=== PATIENT | female | born 1970 | race African-American/Black ===

== ENCOUNTER 2017-01-27 10:52 | Emergency (ER) ==
--- NOTE | 2017-01-27 11:56 | ED EKG INTERP ---
EKG Interpretation - EKG Time of EKG reading by physician:: 11:00 EKG Read and Signed by:: Sacha Macario EKG Interpretation (*Must complete 3 of following elements*): Abnormal Rate: 93 Rhythm: normal sinus rhythm [place]: normal QRS: normal ST Wave: non-specific ST changes Attestation - Scribe Verification/Attestation Scribe:: Arvind López Acting as Scribe for:: Sacha Macario Scribe documention review:: This chart was documented by a scribe and accurately reflects the service the provider performed and the decisions made by the provider. Physician Attestation - Physician Attestation I, the provider, attest to the following statement:: Sacha Macario Physician documentation Attestation:: This documentation recorded by the scribe accurately reflects the service I personally performed and the decisions made by me.
--- NOTE | 2017-01-27 12:15 | PROVIDER DOCUMENTATION ---
HPI-EENT General - General Chief Complaint: Cough Stated Complaint: COUGH Time Seen by Provider: 01/27/17 12:12 Source: patient Allergies/Adverse Reactions: Patient Allergies Allergy/AdvReac Type Severity Reaction Status Date / Time levofloxacin [From Levaquin] Allergy Intermediate RASH Verified 01/27/17 12:09 ceftriaxone sodium * Allergy Mild RASH Verified 01/27/17 12:09 [From Rocephin] Home Medications: Home Medication List Medication Instructions Recorded Confirmed Last Taken Type Potassium Chloride 10 meq PO QAM 07/04/14 01/27/17 01/27/17 History Mometasone/Formoterol [Dulera 200 2 puff INH BID 12/10/14 01/27/17 01/27/17 History Mcg/5 Mcg Inhaler] Furosemide [Lasix] 40 mg PO QAM 01/08/15 01/27/17 01/27/17 History Albuterol [Albuterol Neb] 2.5 mg INH Q4H PRN PRN #0 neb 06/03/15 01/27/17 Rx Aspirin 81 mg PO QAM #0 chewtab 06/03/15 01/27/17 01/27/17 Rx Insulin Glargine [Lantus] 20 unit SUBQ BID #1 insuln.pen 06/03/15 01/27/1701/27 Rx Metformin [Glucophage] 1,000 mg PO BID CC #60 tablet 06/03/15 01/27/17 01/27/17 Rx Omeprazole 40 mg PO DAILY #30 capsule. 08/15/15 01/27/17 01/27/17 Rx Hydrocodone/APAP 10 mg/325 mg 1 each PO Q6HR PRN 08/22/15 01/27/17 01/27/17 History [[place]-10] Albuterol 2.5MG/Ipratrop 0.5MG 3 ml INH Q4H PRN PRN #5 neb 07/09/16 01/27/17 Rx [Duoneb (A & A)] Lisinopril/Hydrochlorothiazide 1 each PO DAILY 08/27/16 01/27/17 01/27/17 History [Lisinopril-Hctz 20-25 mg Tab] Azithromycin [Zithromax Z-Colt] 250 mg PO DIRECTED #1 pkg 01/27/17 Unknown Rx Guaifenesin E.r. [Mucinex] 600 mg PO BID #20 tablet 01/27/17 Unknown Rx - History of Present Illness-EENT General Nature of Presenting Problem: 46 y/o F former smoker with history of COPD, asthma, DM, anemia, HTN presents with complaint of sinus congestion, ST, cough (productive) x 1 week. She reports sick contact with same symptoms. She reports CP only with cough and SOB with coughing fits. She states home breathing treatments are not helping. Denies fever/chills. Review of Systems - Adult - REVIEW OF SYSTEMS - ADULT Constitutional: reports: no symptoms reported. denies: chills, fever Eyes: reports: no symptoms reported. denies: discharge, redness Ears, Nose, Mouth & Throat: reports: throat pain. denies: ear pain Cardiovascular: reports: chest pain (with cough only). denies: edema Respiratory: reports: see HPI Gastrointestinal: reports: no symptoms reported. denies: abdominal pain, nausea , vomiting Genitourinary: reports: no symptoms reported Musculoskeletal: reports: no symptoms reported. denies: joint pain, muscle aches Integumentary: reports: no symptoms reported. denies: itching, rash Neurological: reports: no symptoms reported. denies: dizziness/vertigo, headache/migraines Psychiatric: reports: no symptoms reported Endocrine: reports: no symptoms reported Hematologic/Lymphatic: reports: no symptoms reported Allergic/Immunologic: reports: asthma All Other Systems: Reviewed and Negative Past History - Adult - PAST MEDICAL HISTORY-ADULT Review of Records: reports: Nursing Assessment Review, Medications Reviewed Cardiovascular: reports: CHF, HTN, hyperlipidemia Respiratory: reports: asthma, COPD, sleep apnea Gastrointestinal: reports: GERD Musculoskeletal: reports: arthritis, chronic pain Endocrine/Immune: reports: anemia, Diabetes Other Conditions: reports: other (morbid obesity) - PRIOR SURGERIES/PROCEDURES Surgical/Procedure History: reports: - IMMUNIZATION STATUS Childhood Immunizations: See Nurse Assessment Flu Vaccine: See Nurse Assessment - FAMILY HISTORY Family History: reviewed, not pertinent Physical Exam- EENT - Physical Exam EENT Initial Vital Signs Reviewed: Yes General Appearance: appears well, alert, no apparent distress, obese Eye Exam: bilateral eye: normal inspection, PERRL, EOMI Ear Exam: bilateral ear: auricle normal, canal normal, TM normal Nasal Exam: normal inspection Throat Exam: normal mouth inspection, pharynx normal Neck: non-tender, full range of motion, supple Respiratory: chest non-tender, lungs clear, normal breath sounds, no pleuratic chest pain, no respiratory distress, no accessory muscle use Cardiovascular: normal peripheral pulses, regular rate, rhythm, no edema Lymphatic: no adenopathy Extremity: normal gait, normal inspection, no pedal edema Integumentary: normal color, normal turgor, warm/dry Neurologic: grossly normal, no motor/sensory deficits Psych/Mental Status: normal mood/affect, normal thought content, normal thought process, oriented x 3 Progress - PLAN OF CARE/RESULTS Progress/Plan/Lab Results: Orders Category Date Time Status CHEST-2 VIEWS [RAD] Stat Exams 01/27/17 10:58 Taken Flu Swab [INFLUENZA SCREEN A/B] Stat Lab 01/27/17 10:56 Completed EKG [EKG] Stat Ther 01/27/17 10:57 Ordered Vital Signs Temp Pulse Resp BP Pulse Ox 01/27/17 10:54 97.8 F 88 20 111/57 100 levofloxacin [From Levaquin] Allergy (Intermediate, Verified 01/27/17 12:09) RASH ceftriaxone sodium * [From Rocephin] Allergy (Mild, Verified 01/27/17 12:09) RASH Potassium Chloride 10 meq PO QAM 07/04/14 Mometasone/Formoterol [Dulera 200 Mcg/5 Mcg Inhaler] 2 puff INH BID 12/10/14 Furosemide [Lasix] 40 mg PO QAM 01/08/15 Albuterol [Albuterol Neb] 2.5 mg INH Q4H PRN PRN #0 neb 06/03/15 Aspirin 81 mg PO QAM #0 chewtab 06/03/15 Insulin Glargine [Lantus] 20 unit SUBQ BID #1 insuln.pen 06/03/15 Metformin [Glucophage] 1,000 mg PO BID CC #60 tablet 06/03/15 Omeprazole 40 mg PO DAILY #30 capsule.dr 08/15/15 Hydrocodone/APAP 10 mg/325 mg [[place]-10] 1 each PO Q6HR PRN 08/22/15 Albuterol 2.5MG/Ipratrop 0.5MG [Duoneb (A & A)] 3 ml INH Q4H PRN PRN #5 neb Lisinopril/Hydrochlorothiazide [Lisinopril-Hctz 20-25 mg Tab] 1 each PO DAILY Azithromycin [Zithromax Z-Colt] 250 mg PO DIRECTED #1 pkg 01/27/17 Guaifenesin E.r. [Mucinex] 600 mg PO BID #20 tablet 01/27/17 Patient with bronchitis. Normal vitals. Lungs CTA. CXR neg. Flu neg. Will discharge home with azithromycin as patient is allergic to levaquin and cephalosporins. Advised follow up with PCP within 2-3 days for recheck. - XRAY 1 XRAY Study: Chest XRAY Interpretation: negative Departure - Departure Time of Disposition Order: 12:17 DIAGNOSIS: Bronchitis Disposition: HOME 01 Certified Medical Emergency: Emergent Condition: Good Additional Instructions: ED Follow Up Instructions: You have been treated by a care provider in the Emergency Department. These instructions are being provided to you so you can have an understanding of how to care for yourself upon discharge. Upon discharge from the Emergency Department, you are responsible for making arrangements for follow-up care by a physician of your choice. Take all prescribed medications as directed. Return to the Emergency Department immediately for any new or worsening symptoms. You may call the Physician Referral phone number at [phone] to obtain a list of Physicians who are taking new patients. Prescriptions: Guaifenesin E.r. [Mucinex] 600 mg PO BID #20 tablet Azithromycin [Zithromax Z-Colt] 250 mg PO DIRECTED #1 pkg Referrals: Abdulaziz Bran MD [Primary Care Provider] - Forms: Return to School/Parent Work Instructions: Acute Bronchitis, [id number], Acute Bronchitis Attestation - Physician/ JACLYN Attestation Patient care was provided by Advanced Practice Provider:: Yes Advanced Practice Provider:: Annamarie Rubin Advanced Practice Provider documentation review:: The Mid-level provider documentation, treatment plan and medical decision making was reviewed by the physician who agrees with all treatment and medical decision making by the [facility].
[2017-01-27 12:39] VITALS: BP 128/50
--- NOTE | 2017-01-27 17:45 | Diag Imaging Result Document ---
PROCEDURE NAME: CHEST-2 VIEWS - 01/27/2017 FRONTAL AND LATERAL CHEST, TWO VIEWS: COMPARISON: 11/25/2016. FINDINGS: The heart is borderline mildly prominent. The vessels are not distended. No consolidation. No pleural effusions. IMPRESSION: No definite pneumonia. If symptoms persist then follow up imaging is recommended.
--- NOTE | 2017-01-28 05:22 | EKG Report ---
Test Performed on : 01/27/2017 10:59:04 AM Test Reason : CP Blood Pressure : / mmHG Vent. Rate : 093 BPM Atrial Rate : 093 BPM P-R Int : 132 ms QRS Dur : 078 ms QT Int : 374 ms P-R-T Axes : 036 025 040 degrees QTc Int : 465 ms Normal sinus rhythm. Nonspecific T wave abnormality Abnormal ECG When compared with ECG of 25-NOV-2016 10:57, No significant change was found Unconfirmed Result
== END 2017-01-27 12:39 | disposition home or self-care (01) ==
LOC: ED 10:52
DX: J40 Bronchitis, not specified as acute or chronic (principal); R05 Cough; R07.9 Chest pain, unspecified; R07.0 Pain in throat; R06.02 Shortness of breath; I50.9 Heart failure, unspecified; I10 Essential (primary) hypertension; E78.5 Hyperlipidemia, unspecified; J44.9 Chronic obstructive pulmonary disease, unspecified; E11.9 Type 2 diabetes mellitus without complications; M19.90 Unspecified osteoarthritis, unspecified site; G89.29 Other chronic pain; E66.9 Obesity, unspecified; R94.31 Abnormal electrocardiogram [ECG] [EKG]; Z79.899 Other long term (current) drug therapy; Z79.4 Long term (current) use of insulin; Z79.82 Long term (current) use of aspirin; Z79.51 Long term (current) use of inhaled steroids
CPT/HCPCS: 71020; 87804; 93005

== ENCOUNTER 2017-04-15 14:49 | Inpatient (IN) ==
[2017-04-15] MEDS ORDERED: ASPIRIN PO STA (15:17)
[2017-04-15 15:27] LABS: MANUAL DIFF NEEDED? NO
[2017-04-15 15:31] LABS: BASO% 0.1 % (0.0-0.8); EOS# 0.12 X1000 (0.0-0.7); EOS% 0.8 % (0.0-10.0); HEMATOCRIT 32.7 % (37.0-47.0); HEMOGLOBIN 9.5 g/dL (12.0-16.0); IMM GRAN# 0.06 X1000 (0.0-0.04); IMM GRAN% 0.4 % (0.0-0.5); LYMPH# 2.43 X1000 (1.2-3.4); LYMPH% 16.1 % (20.5-51.1); MCH 23.8 PG (27-31); MCHC 29.1 g/dL (33-37); MONO# 0.65 X1000 (0.11-0.59); MONO% 4.3 % (1.7-9.3); NEUT% 78.3 % (42.2-75.2); PLT 382 X1000 (130-400); RBC 3.99 XMIL (4.2-5.4)
[2017-04-15 15:43] LABS: INR 0.96; PTT 24.3 Seconds (22.0-36.0)
[2017-04-15] MEDS ORDERED: DUONEB (A & A) INH ONE (15:48)
[2017-04-15 15:52] LABS: AGAP 13; ALBUMIN 3.8 g/dL (3.5-5.0); ALKALINE PHOSPHATASE 68 U/L (32-104); BUN 13 mg/dL (8-22); CALCIUM 9.1 mg/dL (8.8-10.2); CHLORIDE 95 mmol/L (98-107); CK PROFILE 54 U/L (24-173); COSMO 282; GOT 7 U/L (10-30); GPT 7 U/L (10-36); MAGNESIUM 1.5 mg/dL (1.5-2.7); SODIUM 138 mmol/L (136-145); TCO2 30 mmol/L (25-35); TOTAL BILIRUBIN 0.13 mg/dL (0.20-1.00); TOTAL PROTEIN 6.4 g/dL (6.3-8.3)
--- NOTE | 2017-04-15 15:59 | Diag Imaging Result Doc PS360 ---
EXAM: CHEST-2 VIEWS HISTORY: CP TECHNIQUE: AP and lateral COMMENT: The study is suboptimal due to the patient's body habitus and attenuation of the lower lung tamayo. There is no definite evidence of acute disease or significant change since 01/31/2017. IMPRESSION: Suboptimal study. No evidence of acute disease. Electronically signed by Vishnu Castanon 04/15/2017 3:56 PM
[2017-04-15] MEDS ORDERED: SOLU-MEDROL IV ONE (16:32)
--- NOTE | 2017-04-15 16:32 | PROVIDER DOCUMENTATION ---
This chart was entered by Zo Ann Scribe, acting as scribe for Mikki Archuleta Jr, MD. HPI-Respiratory General - General Chief Complaint: Cough Stated Complaint: COUGH/SOB Time Seen by Provider: 04/15/17 15:28 Source: patient Allergies/Adverse Reactions: Patient Allergies Allergy/AdvReac Type Severity Reaction Status Date / Time levofloxacin [From Levaquin] Allergy Intermediate RASH Verified 04/15/17 16:06 ceftriaxone sodium * Allergy Mild RASH Verified 04/15/17 16:06 [From Rocephin] Home Medications: Home Medication List Medication Instructions Recorded Confirmed Last Taken Type Potassium Chloride 10 meq PO QAM 07/04/14 04/15/17 01/31/17 History Mometasone/Formoterol [Dulera 200 2 puff INH BID 12/10/14 04/15/17 01/31/17 History Mcg/5 Mcg Inhaler] Furosemide [Lasix] 40 mg PO QAM 01/08/15 04/15/17 01/31/17 History Albuterol [Albuterol Neb] 2.5 mg INH Q4H PRN PRN #0 neb 06/03/15 04/15/17 Rx Aspirin 81 mg PO QAM #0 chewtab 06/03/15 04/15/17 01/31/17 Rx Metformin [Glucophage] 1,000 mg PO BID CC #60 tablet 06/03/15 04/15/17 01/31/17 Rx Omeprazole 40 mg PO DAILY #30 capsule. 08/15/15 04/15/17 01/31/17 Rx Hydrocodone/APAP 10 mg/325 mg 1 each PO Q6HR PRN 08/22/15 04/15/17 01/30/17 History [[place]-10] Albuterol 2.5MG/Ipratrop 0.5MG 3 ml INH Q4H PRN PRN #5 neb 07/09/16 04/15/17 Rx [Duoneb (A & A)] Guaifenesin E.r. [Mucinex] 600 mg PO BID #20 tablet 01/27/17 04/15/17 01/31/17 Rx Folic Acid 1 mg PO DAILY #60 tablet 02/04/17 04/15/17 Unknown Rx Insulin Glargine [Lantus] 25 unit SUBQ BID #1 insuln.pen 02/04/17 04/15/1701/31 Rx Iron Carbonyl/Ascorbic Acid 1 each PO BID #90 tablet 02/04/17 04/15/17 Unknown Rx [Icar-C] Lisinopril/Hydrochlorothiazide 1 each PO BID #60 02/04/17 04/15/17 01/31/17 Rx [Lisinopril-Hctz 20-25 mg Tab] Tiotropium [place] Inhaler 1 puff INH DAILY #1 inhaler 02/04/17 04/15/17 Unknown Rx [Spiriva] Alprazolam [Xanax] 1 mg PO DAILY 04/15/17 04/15/17 Unknown History - History of Present Illness-Resp Nature of Presenting Problem: PT IS A 46YOF PRESENTING TO THE E C/O SOB. PT STATES FOR THE PAST 2-3 DAYS HER SOB HAS INCREASED. PT HAS A HX OF COPD AND ASTHMA. PT STATES SHE USE TO HAVE HOME O2 BUT NO LONGER DOES, SHE STATES HER NEBULIZER TREATMENTS ARE NOT HELPING. PT IS EXTREMELY MORBIDLY OBESE AND HAS BEEN HAVING A DRY COUGH WELL. PTS TEETH ARE BAD WITH DECAY IN BACK RIGHT LOWER MOLAR, SHE STATES HAVING CHILLS AND ACHY SINCE ONSET OF INCREASED SOB. NO OTHER COMPLAINTS AT THIS TIME Quality of Pain: reports: aching Severity in ED: reports: moderate Onset/Duration: reports: 3 days ago Timing: reports: still present Context: reports: other (MORBID OBESITY) Exposure: reports: unknown cause Cough Quality/Degree: reports: moderate, dry cough Episode Frequency: chronic episodes Current Respiratory Medication Therapy: Initiated see nurses note, Initiated A/ A nebulizer Modifying Factors: improves with: exertion, coughing, lying down, sitting upright Associated Symptoms: reports: cough, hurts to breathe, muscle/bodyaches, shortness of breath, wheezing. denies: dizziness, headache Similar Symptoms Previously?: Yes Recently seen or treated by another doctor?: No Review of Systems - Adult - REVIEW OF SYSTEMS - ADULT Constitutional: reports: see HPI, chills, fatique, night sweats. denies: fever Eyes: reports: no symptoms reported Ears, Nose, Mouth & Throat: reports: no symptoms reported Cardiovascular: reports: no symptoms reported Respiratory: reports: see HPI, chronic cough, cough, dyspnea on exertion, shortness of breath. denies: excessive sputum production Gastrointestinal: reports: no symptoms reported Genitourinary: reports: no symptoms reported Musculoskeletal: reports: no symptoms reported Integumentary: reports: no symptoms reported Neurological: reports: no symptoms reported Psychiatric: reports: no symptoms reported Endocrine: reports: no symptoms reported Hematologic/Lymphatic: reports: no symptoms reported Allergic/Immunologic: reports: no symptoms reported All Other Systems: Reviewed and Negative Past History - Adult - PAST MEDICAL HISTORY-ADULT Review of Records: reports: Old Records Reviewed, Nursing Assessment Review, Medications Reviewed, Social history reviewed & non-contributory. Major Childhood Illnesses: reports: denies history Cardiovascular: reports: CHF, HTN, hyperlipidemia Respiratory: reports: asthma, COPD, sleep apnea Gastrointestinal: reports: GERD Obstetrical/Gynecological: reports: denies history Genitourinary: reports: denies history Musculoskeletal: reports: arthritis, chronic pain Neurological: reports: denies history Endocrine/Immune: reports: anemia, Diabetes Other Conditions: reports: other (morbid obesity) - PRIOR SURGERIES/PROCEDURES Surgical/Procedure History: reports: - IMMUNIZATION STATUS Childhood Immunizations: See Nurse Assessment Flu Vaccine: See Nurse Assessment - FAMILY HISTORY Family History: reviewed, not pertinent - SOCIAL HISTORY Smoking: quit less than 1 year Substance Use: denies Alcohol Use Frequency: never Living Situation: family Physical Exam-General - PHYSICAL EXAM-ADULT Initial Vital Signs Reviewed: Yes - CONSTITUTIONAL General Appearance: alert, moderate distress, obese (MORBIDLY), anxious. negative: no apparent distress - EYES Eyes: PERRL/EOMI, pink conjunctivae - HEAD, EARS, NOSE, MOUTH & THROAT HENMT: normocephalic/atraumatic, moist mucous membranes, normal ENT inspection, TMs normal, pharynx normal, dental decay (BACK BOTTOM RIGHT SIDE MOLAR) - NECK Neck: non-tender, full range of motion, supple, normal inspection - RESPIRATORY Respiratory: chest non-tender, no pleuratic chest pain, no respiratory distress , no accessory muscle use, decreased breath sounds. negative: lungs clear, normal breath sounds - CARDIOVASCULAR Cardiovascular: normal peripheral pulses, regular rate, rhythm, no edema, no gallop, no JVD, no murmur - GASTROINTESTINAL (ABDOMEN) Abdominal Exam: normal bowel sounds, non tender, soft, no organomegaly, no pulsatile mass - LYMPHATIC Lymphatic: no adenopathy - MUSCULOSKELETAL Back Exam: normal inspection, no CVA tenderness, no vertebral tenderness Extremity: non-tender, no pedal edema, no calf tenderness, normal capillary refill, pelvis stable, other (UNABLE TO AMBULATE DUE TO WEIGHT AND SIZE). 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 nml as tested, grossly normal, no motor/sensory deficits - PSYCHIATRIC Psych/Mental Status: normal mood/affect, normal thought content, normal thought process, oriented x 3 Progress - PLAN OF CARE/RESULTS Progress/Plan/Lab Results: Vital Signs - 8 hr 04/15/17 14:52 04/15/17 16:10 04/15/17 16:23 Temperature 97.7 F Pulse Rate 85 81 73 Respiratory Rate 20 19 20 Blood Pressure 133/71 130/85 O2 Sat by Pulse Oximetry 99 96 97 Laboratory Results - last 24 hr 04/15/17 04/15/17 04/15/17 15:14 15:14 15:14 WBC 15.08 H RBC 3.99 L Hgb 9.5 L Hct 32.7 L MCV 82.0 MCH 23.8 L MCHC 29.1 L RDW Std Deviation 17.0 H Plt Count 382 MPV 10.0 Immature Gran % (Auto) 0.4 Neut % (Auto) 78.3 H Lymph % (Auto) 16.1 L [place] % (Auto) 4.3 Eos % (Auto) 0.8 Baso % (Auto) 0.1 Immature Gran # (Auto) 0.06 H Neut # (Auto) 11.80 H Lymph # (Auto) 2.43 [place] # (Auto) 0.65 H Eos # (Auto) 0.12 Baso # (Auto) 0.02 PT INR PTT (Actin FS) D-Dimer 0.46 Sodium 138 Potassium 4.0 Chloride 95 L Carbon Dioxide 30 Anion Gap 13 BUN 13 Creatinine 0.5 Estimated GFR/1.73 m2 > 60 BUN/Creatinine Ratio 26 Glucose 219 H Calculated Osmolality 282 Calcium 9.1 Magnesium 1.5 Total Bilirubin 0.13 L AST 7 L ALT 7 L Alkaline Phosphatase 68 Creatine Kinase 54 Troponin T Htf-N-Yirixosrdcw Pept Total Protein 6.4 Albumin 3.8 Globulin 2.6 Albumin/Globulin Ratio 1.5 06/05/2504/15/17 04/15/17 15:14 15:14 15:14 WBC RBC Hgb Hct MCV MCH MCHC RDW Std Deviation Plt Count MPV Immature Gran % (Auto) Neut % (Auto) Lymph % (Auto) [place] % (Auto) Eos % (Auto) Baso % (Auto) Immature Gran # (Auto) Neut # (Auto) Lymph # (Auto) [place] # (Auto) Eos # (Auto) Baso # (Auto) PT 10.0 INR 0.96 PTT (Actin FS) 24.3 D-Dimer Sodium Potassium Chloride Carbon Dioxide Anion Gap BUN Creatinine Estimated GFR/1.73 m2 BUN/Creatinine Ratio Glucose Calculated Osmolality Calcium Magnesium Total Bilirubin AST ALT Alkaline Phosphatase Creatine Kinase Troponin T < 0.010 Esh-K-Fnwchrmvlyx Pept 127 Total Protein Albumin Globulin Albumin/Globulin Ratio Orders Category Date Time Status Cardiac Monitoring DIRECTED Care 04/15/17 15:17 Active Saline Loc NOW Care 04/15/17 15:17 Active CHEST-2 VIEWS [RAD] Stat Exams 04/15/17 15:17 Completed CBC WITH ELECTRONIC DIFF [HEME] Stat Lab 04/15/17 15:14 Completed CK PROFILE [SP CHEM] Stat Lab 04/15/17 15:14 Completed COMPREHENSIVE METABOLIC PANEL [CHEM] Stat Lab 04/15/17 15:14 Completed D-DIMER [CHEM] Stat Lab 04/15/17 15:14 Completed MAGNESIUM [CHEM] Stat Lab 04/15/17 15:14 Completed PRO B-NATRIURETIC PEPTIDE Stat Lab 04/15/17 15:14 Completed PROTIME WITH INR [COAG] Stat Lab 04/15/17 15:14 Completed PTT [COAG] Stat Lab 04/15/17 15:14 Completed TROPONIN T Stat Lab 04/15/17 15:14 Completed Albuterol 2.5MG/Ipratrop 0.5MG [Duoneb (A & A)] Med 04/15/17 15:48 Discontinued 3 ml INH NOW ONE Aspirin Med 04/15/17 15:17 Discontinued 325 mg PO STAT STA Aerosol Treatments Routine Oth 04/15/17 15:48 Completed Aerosol Treatments Stat Oth 04/15/17 15:48 Completed Laboratory Tests 04/15/17 04/15/17 04/15/17 15:14 15:14 15:14 WBC 15.08 H RBC 3.99 L Hgb 9.5 L Hct 32.7 L MCV 82.0 MCH 23.8 L MCHC 29.1 L RDW Std Deviation 17.0 H Plt Count 382 MPV 10.0 Immature Gran % (Auto) 0.4 Neut % (Auto) 78.3 H Lymph % (Auto) 16.1 L [place] % (Auto) 4.3 Eos % (Auto) 0.8 Baso % (Auto) 0.1 Immature Gran # (Auto) 0.06 H Neut # (Auto) 11.80 H Lymph # (Auto) 2.43 [place] # (Auto) 0.65 H Eos # (Auto) 0.12 Baso # (Auto) 0.02 PT INR PTT (Actin FS) D-Dimer 0.46 Sodium 138 Potassium 4.0 Chloride 95 L Carbon Dioxide 30 Anion Gap 13 BUN 13 Creatinine 0.5 Estimated GFR/1.73 m2 > 60 BUN/Creatinine Ratio 26 Glucose 219 H Calculated Osmolality 282 Calcium 9.1 Magnesium 1.5 Total Bilirubin 0.13 L AST 7 L ALT 7 L Alkaline Phosphatase 68 Creatine Kinase 54 Troponin T Evr-Q-Hpksjrcgghm Pept Total Protein 6.4 Albumin 3.8 Globulin 2.6 Albumin/Globulin Ratio 1.5 04/15/17 04/15/17 04/15/17 15:14 15:14 15:14 WBC RBC Hgb Hct MCV MCH MCHC RDW Std Deviation Plt Count MPV Immature Gran % (Auto) Neut % (Auto) Lymph % (Auto) [place] % (Auto) Eos % (Auto) Baso % (Auto) Immature Gran # (Auto) Neut # (Auto) Lymph # (Auto) [place] # (Auto) Eos # (Auto) Baso # (Auto) PT 10.0 INR 0.96 PTT (Actin FS) 24.3 D-Dimer Sodium Potassium Chloride Carbon Dioxide Anion Gap BUN Creatinine Estimated GFR/1.73 m2 BUN/Creatinine Ratio Glucose Calculated Osmolality Calcium Magnesium Total Bilirubin AST ALT Alkaline Phosphatase Creatine Kinase Troponin T < 0.010 Vmw-K-Koqojaoawci Pept 127 Total Protein Albumin Globulin Albumin/Globulin Ratio Orders Category Date Time Status Cardiac Monitoring DIRECTED Care 04/15/17 15:17 Active Saline Loc NOW Care 04/15/17 15:17 Active CHEST-2 VIEWS [RAD] Stat Exams 04/15/17 15:17 Completed CBC WITH ELECTRONIC DIFF [HEME] Stat Lab 04/15/17 15:14 Completed CK PROFILE [SP CHEM] Stat Lab 04/15/17 15:14 Completed COMPREHENSIVE METABOLIC PANEL [CHEM] Stat Lab 04/15/17 15:14 Completed D-DIMER [CHEM] Stat Lab 04/15/17 15:14 Completed MAGNESIUM [CHEM] Stat Lab 04/15/17 15:14 Completed PRO B-NATRIURETIC PEPTIDE Stat Lab 04/15/17 15:14 Completed PROTIME WITH INR [COAG] Stat Lab 04/15/17 15:14 Completed PTT [COAG] Stat Lab 04/15/17 15:14 Completed TROPONIN T Stat Lab 04/15/17 15:14 Completed Albuterol 2.5MG/Ipratrop 0.5MG [Duoneb (A & A)] Med 04/15/17 15:48 Discontinued 3 ml INH NOW ONE Aspirin Med 04/15/17 15:17 Discontinued 325 mg PO STAT STA Aerosol Treatments Routine Oth 04/15/17 15:48 Active Aerosol Treatments Stat Oth 04/15/17 15:48 Active Vital Signs - 24 hr 04/15/17 14:52 04/15/17 16:10 Temperature 97.7 F Pulse Rate 85 81 Respiratory Rate 20 19 Blood Pressure 133/71 130/85 O2 Sat by Pulse Oximetry 99 96 Result Diagrams: 04/15/17 15:14 04/15/17 15:14 - XRAY 1 XRAY: Bilateral XRAY Study: Chest (NO CHANGE SINCE 01/31/17, SUBOPTIMAL STUDY NAD - [id number]) - CONSULTS/PCP/HOSPITALIST Notification #1 *Consult/PCP/Hospitalist*: Dr. 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) Departure - Departure Date of Disposition Decision: 04/15/17 Time of Disposition Decision: 16:30 DIAGNOSIS: COPD exacerbation, Morbid obesity with BMI of 70 and over, adult Disposition: ADMITTED INPATIENT 09 Certified Medical Emergency: Emergent Condition: Fair Referrals and Follow-Ups: Abdulaziz Bran MD [Primary Care Provider] - - Critical Care Note This patient required my direct & personal management of CC.: No This chart was documented by the indicated scribe, (Zo Ann Scribe) and accurately reflects the services I performed and decisions made by me, Mikki Archuleta Jr, MD, as attested by the provider's signature.
[2017-04-15] MEDS: ZITHROMAX 500 MG/NS 500 MG/250 ML IVPB IV SCH (18:04)
--- NOTE | 2017-04-15 19:20 | HISTORY AND PHYSICAL ---
PRIMARY CARE PROVIDER: Dr. Bran. FABRICATION ENGINEER: Dr. Merritt. RN INTERNATIONAL: Dr. Theodore. CHIEF COMPLAINT: Shortness of breath. HISTORY OF PRESENT ILLNESS: Ms. Gee is a 46-year-old, morbidly obese, female with a medical history of COPD, diabetes mellitus type 2, mild obstructive sleep apnea, who presents with shortness of breath and chills for 2 days. She states she has a nonproductive cough that is worse at night. Her shortness of breath is worse when she is talking and with activity and also her voice gets strained every time she gets sick. She has no other complaints. Workup revealed that she does have an elevated white blood cell count of 15,000 but this also appears to be chronic for her, although patient states she is unsure of why she would have a chronic elevated white count. Will admit her for COPD exacerbation. Chest x-ray did not show any signs of acute disease. PAST MEDICAL HISTORY: Morbid obesity with a BMI of 86.5, self reported congestive heart failure but ejection fraction on last echocardiogram was normal and she had normal diastolic function. She had did have some mild pulmonary hypertension. Diabetes mellitus type 2, chronic blood loss anemia secondary to menstruation, iron deficiency anemia, asthma with COPD, obstructive sleep apnea, GERD, arthritis of the knees, hypertension, hyperlipidemia, gout, anxiety. PAST SURGICAL HISTORY: section. SOCIAL HISTORY: Quit smoking in 2005; was a 2 pack per day smoker prior to that. She is still around people and has secondhand smoke. Denies alcohol or illicit drug use. FAMILY HISTORY: Positive for diabetes, hypertension, COPD. REVIEW OF SYSTEMS: Fourteen point review of systems were complete and all were negative except for those mentioned in the above HPI. ALLERGIES: Levaquin and Rocephin. HOME MEDICATIONS: Albuterol, Xanax, aspirin, folic acid, Lasix, Mucinex, [place] 10, Lantus, Icar C, lisinopril hydrochlorothiazide, metformin, Dulera, omeprazole, potassium chloride, Spiriva. PHYSICAL EXAMINATION: VITAL SIGNS: Temperature 98.1 degrees, heart rate 82, respiratory rate 21, blood pressure 128/80, O2 saturation 99% on room air. GENERAL: Ms. Sherlyn Gee is a 46-year-old, morbidly obese female who is quite tearful at this time but she is able to answer questions appropriately. HEENT: Atraumatic, normocephalic. Pupils equal, round, reactive to light. Extraocular movements intact. Mucous membranes. NECK: No carotid bruits. CARDIOVASCULAR: S1, S2. Regular rate and rhythm. No rubs, gallops, murmurs. PULMONARY: Mild expiratory wheezes noted in the upper lobes posteriorly. Mild shortness of breath. No accessory muscle use and she is on room air next. GI: Soft, obese. Tender in the epigastric and right and left upper quadrants. EXTREMITIES: No edema. There are +2 dorsalis and radial pulses. NEUROLOGIC: Alert and oriented x4. Moves all extremities equally. LABORATORY DATA: White blood cells 15,000, hemoglobin 9.5, hematocrit 32.7, platelet count 382,000. INR 0.96. PTT 24.3. D-dimer 0.46. Sodium 138, potassium 4.0, BUN 13, creatinine 0.5, glucose 219, magnesium 1.5, bilirubin 0.13, AST 7, ALT 7. Cardiac enzymes negative. Albumin 3.8. IMAGING: Chest x-ray showed no acute findings but was a suboptimal study. ASSESSMENT AND PLAN: 1. Chronic obstructive pulmonary disease exacerbation. Will do albuterol Atrovent nebs, budesonide, acetylcysteine. Turn, cough, deep breathe. Antibiotic coverage. 2. Obstructive sleep apnea. She will use her CPAP from home. 3. Chronic anemia but it is stable at this time at 9.5 and 32.7. The anemia is chronic blood loss anemia and iron deficiency anemia. We will continue her iron. 4. Diabetes mellitus type 2. Pattern blood glucoses and sliding scale insulin. 5. Gastroesophageal reflux disease. Continue proton pump inhibitor. 6. Arthritis. Continue home medications. 7. Hypertension. Continue home medications. 8. Anxiety. Continue Xanax. 9. Morbid obesity with a body mass index of 86.5. Exercise and diet discussed. 10. Elevated white blood cell count, leukocytosis. Appears to be chronic but patient states she has no reason why she would have a chronic elevated white blood cell count. She states she does not take steroids at home. Dictated by CORY Mccloud for Yonathan Hopkins MD cc: CORY Mccloud MD
[2017-04-15] MEDS ORDERED: NS 1,000 ML IV SCH (20:13)
[2017-04-15] MEDS ORDERED: TYLENOL PO PRN (20:13)
[2017-04-15] MEDS: MUCINEX PO SCH (21:06)
[2017-04-15] MEDS: PRINZIDE 10/12.5MG PO SCH (21:06)
[2017-04-15] MEDS: ICAR-C PO SCH (21:06)
[2017-04-15] MEDS: XANAX PO SCH (21:06)
[2017-04-15] MEDS: HUMULIN R SUBQ SCH (21:07)
[2017-04-15] MEDS: NORCO-10 PO PRN (21:11)
[2017-04-15] MEDS: SOLU-MEDROL IV SCH (21:39)
[2017-04-15] MEDS: LANTUS SUBQ SCH (21:44)
[2017-04-15] MEDS: DUONEB (A & A) INH SCH ×2 (21:49→23:17)
[2017-04-15] MEDS: MUCOMYST 20% INH SCH (21:49)
[2017-04-15] MEDS: PULMICORT INH SCH (21:49)
[2017-04-16] MEDS: DUONEB (A & A) INH SCH ×6 (03:09→23:01)
[2017-04-16] MEDS: SOLU-MEDROL IV SCH ×4 (03:59→22:06)
[2017-04-16] MEDS: NORCO-10 PO PRN ×3 (04:01→19:59)
[2017-04-16 05:08] LABS: URINE MICRO REVIEW NEEDED? NO; URINE SOURCE CLEAN CATCH
[2017-04-16 05:14] LABS: UR EPITHELIAL CELLS <10 /HPF (<10); URINE BACTERIA NEGATIVE /HPF; URINE RBC <10 /HPF (<10)
[2017-04-16 05:15] LABS: BILIRUBIN URINE NEGATIVE (NEGATIVE); BLOOD URINE NEGATIVE (NEGATIVE); COLOR YELLOW; GLUCOSE URINE >1000 mg/dL (NEGATIVE); LEUKOCYTES URINE TRACE (NEGATIVE); NITRITE URINE NEGATIVE (NEGATIVE); PH URINE 6.5; PROTEIN URINE NEGATIVE (NEGATIVE); SP GRAVITY URINE 1.025; TURBIDITY URINE CLEAR (CLEAR); URINE CULTURE NEEDED? YES; UROBILINOGEN URINE NORMAL (NORMAL)
--- NOTE | 2017-04-16 05:38 | EKG Report ---
Test Performed on : 04/15/2017 2:56:01 PM Test Reason : No Order in [id number] Blood Pressure : / mmHG Vent. Rate : 084 BPM Atrial Rate : 084 BPM P-R Int : 136 ms QRS Dur : 078 ms QT Int : 398 ms P-R-T Axes : 037 020 031 degrees QTc Int : 470 ms Normal sinus rhythm. Normal ECG When compared with ECG of 27-JAN-2017 10:59, No significant change was found Unconfirmed Result
[2017-04-16] MEDS: HUMULIN R SUBQ SCH ×4 (06:00→20:07)
[2017-04-16] MEDS: PRILOSEC PO SCH (06:00)
[2017-04-16 07:26] LABS: BASO% 0.1 % (0.0-0.8); EOS# 0.01 X1000 (0.0-0.7); EOS% 0.1 % (0.0-10.0); HEMATOCRIT 33.3 % (37.0-47.0); HEMOGLOBIN 9.5 g/dL (12.0-16.0); IMM GRAN# 0.17 X1000 (0.0-0.04); LYMPH# 0.82 X1000 (1.2-3.4); LYMPH% 5.1 % (20.5-51.1); MANUAL DIFF NEEDED? YES; MCH 23.1 PG (27-31); MCHC 28.5 g/dL (33-37); MONO# 0.08 X1000 (0.11-0.59); MONO% 0.5 % (1.7-9.3); NEUT% 93.2 % (42.2-75.2); PLT 397 X1000 (130-400); RBC 4.11 XMIL (4.2-5.4)
[2017-04-16 07:46] LABS: AGAP 17; ALBUMIN 3.9 g/dL (3.5-5.0); ALKALINE PHOSPHATASE 70 U/L (32-104); BUN 16 mg/dL (8-22); CHLORIDE 93 mmol/L (98-107); COSMO 285; GOT 7 U/L (10-30); GPT 7 U/L (10-36); POTASSIUM 4.4 mmol/L (3.5-5.1); SODIUM 134 mmol/L (136-145); TCO2 24 mmol/L (25-35); TOTAL BILIRUBIN 0.19 mg/dL (0.20-1.00); TOTAL PROTEIN 7.2 g/dL (6.3-8.3)
[2017-04-16 07:51] LABS: BANDS 4 % (0-1); HYPOCHROM 1+; LYMPHS 6 % (21-51); MONO 2 % (1-9)
[2017-04-16] MEDS: MUCOMYST 20% INH SCH ×2 (07:58→19:47)
[2017-04-16] MEDS: PULMICORT INH SCH ×2 (08:00→19:47)
[2017-04-16] MEDS: LANTUS SUBQ SCH ×2 (08:37→19:59)
[2017-04-16] MEDS: PRINZIDE 10/12.5MG PO SCH ×2 (08:39→20:02)
[2017-04-16] MEDS: LOVENOX SUBQ SCH (08:39)
[2017-04-16] MEDS: KLOR-CON PO SCH (08:45)
[2017-04-16] MEDS: FOLIC ACID PO SCH (08:45)
[2017-04-16] MEDS: ICAR-C PO SCH ×2 (08:45→19:59)
[2017-04-16] MEDS: MUCINEX PO SCH ×2 (08:45→19:59)
[2017-04-16] MEDS: ASPIRIN PO SCH (08:45)
[2017-04-16] MEDS: LASIX PO SCH (08:45)
--- NOTE | 2017-04-16 10:00 | Diag Imaging Result Doc PS360 ---
EXAM: US ABDOMEN-COMPLETE INDICATION: abd pain; epigastric region COMPARISON: 08/21/2016 FINDINGS: The gallbladder appears normal with no stones, wall thickening, or pericholecystic fluid. The common bile duct is normal in diameter. Sonographic Rhodes's sign was reported to be negative. The liver is diffusely echogenic suggesting hepatic steatosis. The liver is mildly prominent measuring up to 18.6 cm in length. Portal venous flow is hepatopedal. The pancreas is partially obscured. The visualized portion is unremarkable. The aorta and IVC are grossly unremarkable. The spleen is unremarkable. The kidneys are grossly unremarkable. IMPRESSION: Mildly prominent liver and suggestion of hepatic steatosis. Essentially unremarkable, otherwise. Electronically signed by Jemal Byrd 04/16/2017 9:57 AM
--- NOTE | 2017-04-16 13:38 | PROGRESS NOTE ---
DATE: 04/16/2017 SUBJECTIVE: This patient states that she is still having shortness of breath but compared with yesterday she is a little bit better. She denies nausea, vomiting. No fever. No chills. OBJECTIVE: Vital Signs: Temperature 97.6 degrees, pulse 79, respiratory rate 19, blood pressure 124/57, oxygen saturation 95% on 3 L of nasal cannula. HEENT: Head normocephalic. No trauma. PERRLA. Neck: Supple. No JVD. No masses. Central trachea. Chest: Decreased breath sounds globally. Prolonged expiratory phase. Scattered wheezing bilaterally. Abdomen: Soft, obese, nontender, nondistended. Extremities: No edema. No clubbing. No cyanosis. Neurological: The patient is alert and oriented x3. No focal deficits. LABORATORY: WBC 16.2, hemoglobin 9.5, hematocrit 33.3, platelets 397,000. Sodium 134, potassium 4.4, chloride 93, bicarbonate 24, BUN 16, creatinine 0.6, glucose 378, calcium 9.8. ASSESSMENT AND PLAN: 1. COPD exacerbation. Continue with the same management for now, breathing treatment, steroids, pulmonary toilet. 2. Obstructive sleep apnea. She will use her CPAP from home. 3. Chronic anemia, stable. We will continue to monitor. 4. Type 2 diabetes. I will continue with the pattern of blood sugar and sliding scale insulin. She is on Lantus at this moment 25 units subcu twice a day. I will increase the dose to 35 twice a day and I will check tomorrow. Probably the increase of blood sugar has been related with the steroids. 5. GERD. Continue with PPIs. 6. Arthritis. Continue with home medication. 7. Hypertension. Continue also with home medication. The blood pressure is stable. 8. Anxiety. Continue with Xanax. 9. Morbid obesity with a body mass index of 86.5, exercise and diet discussed. 10. Leukocytosis, appears to be chronic, we will continue to monitor. The patient states that at home she is not taking any kind of steroids. cc: Yonathan Hopkins MD
[2017-04-16] MEDS ORDERED: NS 500 ML IV ONE ×2 (14:05→16:10)
[2017-04-16] MEDS: ZITHROMAX 500 MG/NS 500 MG/250 ML IVPB IV SCH (17:32)
[2017-04-16] MEDS: XANAX PO SCH (19:59)
[2017-04-17] MEDS: DUONEB (A & A) INH SCH ×6 (03:55→23:00)
[2017-04-17] MEDS: SOLU-MEDROL IV SCH ×2 (04:04→10:05)
[2017-04-17] MEDS: PRILOSEC PO SCH (06:06)
[2017-04-17] MEDS: HUMULIN R SUBQ SCH ×4 (06:06→21:40)
[2017-04-17] MEDS: NORCO-10 PO PRN ×3 (06:06→21:40)
[2017-04-17 07:14] LABS: BASO% 0.1 % (0.0-0.8); HEMATOCRIT 32.5 % (37.0-47.0); HEMOGLOBIN 9.3 g/dL (12.0-16.0); IMM GRAN# 0.15 X1000 (0.0-0.04); IMM GRAN% 0.8 % (0.0-0.5); LYMPH# 1.05 X1000 (1.2-3.4); LYMPH% 5.6 % (20.5-51.1); MANUAL DIFF NEEDED? YES; MCH 23.3 PG (27-31); MCHC 28.6 g/dL (33-37); MCV 81.5 FL (81-99); MONO# 0.54 X1000 (0.11-0.59); MONO% 2.9 % (1.7-9.3); MPV 10.3 FL (7.4-10.4); NEUT% 90.6 % (42.2-75.2); PLT 414 X1000 (130-400); RBC 3.99 XMIL (4.2-5.4)
[2017-04-17] MEDS: ZOFRAN IV PRN ×2 (07:19→14:30)
[2017-04-17 07:26] LABS: AGAP 16; BUN 17 mg/dL (8-22); CALCIUM 9.1 mg/dL (8.8-10.2); CHLORIDE 95 mmol/L (98-107); COSMO 284; POTASSIUM 3.9 mmol/L (3.5-5.1); SODIUM 136 mmol/L (136-145); TCO2 25 mmol/L (25-35)
[2017-04-17 07:47] LABS: BANDS 8 % (0-1); LYMPHS 4 % (21-51); MONO 2 % (1-9)
[2017-04-17 07:48] LABS: HYPOCHROM 1+
[2017-04-17] MEDS ORDERED: INSULIN PEN NEEDLES ONE (07:48)
[2017-04-17] MEDS: PULMICORT INH SCH ×2 (08:54→19:46)
[2017-04-17] MEDS: MUCOMYST 20% INH SCH ×2 (08:54→19:48)
[2017-04-17] MEDS: LASIX PO SCH (10:06)
[2017-04-17] MEDS: FOLIC ACID PO SCH (10:06)
[2017-04-17] MEDS: KLOR-CON PO SCH (10:06)
[2017-04-17] MEDS: ICAR-C PO SCH ×2 (10:06→21:30)
[2017-04-17] MEDS: PRINZIDE 10/12.5MG PO SCH ×2 (10:06→21:30)
[2017-04-17] MEDS: ASPIRIN PO SCH (10:07)
[2017-04-17] MEDS: MUCINEX PO SCH ×2 (10:07→21:39)
[2017-04-17] MEDS: LANTUS SUBQ SCH ×2 (10:07→21:43)
[2017-04-17] MEDS: LOVENOX SUBQ SCH (10:07)
[2017-04-17] MEDS: MYCOSTATIN SUSP PO SCH ×3 (14:25→21:44)
--- NOTE | 2017-04-17 15:54 | PROGRESS NOTE ---
DATE: 04/17/2017 SUBJECTIVE: Today, Ms. Gee referred to be doing fine. She continues to have cough and abdominal discomfort due to excessive cough. OBJECTIVE: Vital signs: Blood pressure is 111/50, pulse of 67, respirations 18, temperature 98.1 degrees. General: Ms. Gee is a 46-year-old female. She is in bed. There is no distress. Mucosa is pink and moist. Anicteric. Acyanotic. Neck: Supple. Chest: Air entry is bilaterally reduced. There is a few bibasilar crepitations. Cardiovascular: Regular rate and rhythm. Abdomen: Soft, distended, mildly tender in the epigastrium. Extremities: No pedal edema. 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 There is no focal neurological deficit. LABORATORY DATA: WBC is 18.65, hemoglobin is 9.3, platelet count of 415,000. There is only 8% of bands on peripheral smear. Chemistry is reviewed completely unremarkable except for glucose of 293. ASSESSMENT: 1. Chronic obstructive pulmonary disease exacerbation. We will continue with bronchodilation, antibiotic and steroid. 2. Obstructive obstructive sleep apnea. Patient will continue using his CPAP during sleep time. 3. Diabetes type 2. We will continue with insulin regimen. Patient's glucose I think has been slightly high due to steroids. 4. Leukocytosis likely from steroid use. Noted. 5. Hypertension stable. PLAN: In general, I think Ms. Gee is improving. We are going to cut down her steroid dose. We are going to change her steroids to oral since the COPD seems to be improving. We will continue with the current IV antibiotics and bronchodilation therapy. I encouraged the patient to sit up some more and use her CPAP machine during sleep. Hopefully, we might be able to discharge the patient home soon. cc: Ruben Jiang MD
[2017-04-17] MEDS: ZITHROMAX 500 MG/NS 500 MG/250 ML IVPB IV SCH (17:34)
[2017-04-17] MEDS: XANAX PO SCH (21:40)
[2017-04-18] MEDS: HUMULIN R SUBQ SCH ×8 (00:18→22:55)
[2017-04-18] MEDS: DUONEB (A & A) INH SCH ×6 (03:56→23:25)
[2017-04-18] MEDS: NORCO-10 PO PRN ×3 (04:44→21:21)
[2017-04-18] MEDS: ZOFRAN IV PRN ×2 (04:44→10:44)
[2017-04-18] MEDS: PRILOSEC PO SCH (06:22)
[2017-04-18 06:30] LABS: HEMATOCRIT 32.1 % (37.0-47.0); HEMOGLOBIN 9.1 g/dL (12.0-16.0); IMM GRAN# 0.26 X1000 (0.0-0.04); IMM GRAN% 1.3 % (0.0-0.5); LYMPH# 2.28 X1000 (1.2-3.4); LYMPH% 11.2 % (20.5-51.1); MANUAL DIFF NEEDED? YES; MCH 23.5 PG (27-31); MCHC 28.3 g/dL (33-37); MCV 82.7 FL (81-99); MONO# 1.12 X1000 (0.11-0.59); MONO% 5.5 % (1.7-9.3); MPV 10.2 FL (7.4-10.4); PLT 404 X1000 (130-400); RBC 3.88 XMIL (4.2-5.4)
[2017-04-18 06:35] LABS: AGAP 13; BUN 25 mg/dL (8-22); CALCIUM 9.3 mg/dL (8.8-10.2); CHLORIDE 95 mmol/L (98-107); COSMO 287; POTASSIUM 4.1 mmol/L (3.5-5.1); SODIUM 138 mmol/L (136-145); TCO2 30 mmol/L (25-35)
[2017-04-18 07:00] LABS: BANDS 4 % (0-1); LYMPHS 12 % (21-51); MONO 6 % (1-9)
[2017-04-18 07:01] LABS: HYPOCHROM 1+
[2017-04-18] MEDS: PULMICORT INH SCH ×2 (07:54→19:35)
[2017-04-18] MEDS: MUCOMYST 20% INH SCH ×2 (07:54→19:35)
[2017-04-18] MEDS: LOVENOX SUBQ SCH (08:52)
[2017-04-18] MEDS: FOLIC ACID PO SCH (08:53)
[2017-04-18] MEDS: LANTUS SUBQ SCH ×2 (08:53→21:20)
[2017-04-18] MEDS: PRINZIDE 10/12.5MG PO SCH ×2 (08:53→21:20)
[2017-04-18] MEDS: LASIX PO SCH (08:54)
[2017-04-18] MEDS: ASPIRIN PO SCH (08:54)
[2017-04-18] MEDS: KLOR-CON PO SCH (08:54)
[2017-04-18] MEDS: ICAR-C PO SCH ×2 (08:54→21:20)
[2017-04-18] MEDS: MUCINEX PO SCH ×2 (08:54→21:20)
[2017-04-18] MEDS: MYCOSTATIN SUSP PO SCH ×4 (08:54→21:21)
[2017-04-18] MEDS ORDERED: PREDNISONE PO SCH (09:00)
[2017-04-18] MEDS ORDERED: SODIUM CHLORIDE 0.9% 10 ML ONE (10:43)
--- NOTE | 2017-04-18 15:33 | PROGRESS NOTE ---
DATE: 04/18/2017 SUBJECTIVE: Today Mrs. Gee states that she is doing better. She still continued to have cough and abdominal discomfort due to her excessive cough. She is still having mild shortness of breath and weakness. Probably tomorrow I will be able to discharge this patient. OBJECTIVE: Vital Signs: Temperature 97.4 degrees, pulse 69, respiratory rate 17, blood pressure 110/67, O2 saturation 99 on nasal cannula 3 L. HEENT: Head normocephalic. No trauma. PERRLA. Neck: Supple. No JVD. No masses. Central trachea. Obese. Chest: Decreased breath sounds globally mostly at the bases. Prolonged expiratory phase. Scattered wheezing bilaterally. Cardiovascular: RRR. No murmurs. Abdomen: Soft, protuberant. Mild tenderness to palpation at the level of the epigastric area. Extremities: No edema. No clubbing. No cyanosis. Neurological: The patient is alert and oriented x3. No focal neurological deficits. LABORATORY: WBC 20.3, hemoglobin 9.1, hematocrit 32.1, platelet 404,000. Sodium 138, potassium 4.1, chloride 95, bicarbonate 30, BUN 25, creatinine 0.7, glucose 228. ASSESSMENT AND PLAN: 1. Chronic obstructive pulmonary disease exacerbation. I will continue with bronchodilator, oxygen and steroids, pulmonary toilet and I will ask for physical therapy evaluation. 2. Obstructive sleep apnea. Patient will continue using her CPAP machine during sleep time. 3. Uncontrolled type 2 diabetes. I will increase the dose of Lantus from 35-45 units. Likely the glucose has been elevated secondary to steroids. 4. Leukocytosis. Again this is likely secondary to steroids. She does not have any source of infection. 5. Hypertension stable. Overall, this patient is doing much better, hopefully tomorrow we will be able to discharge her home. cc: Yonathan Hopkins MD
[2017-04-18] MEDS: ZITHROMAX 500 MG/NS 500 MG/250 ML IVPB IV SCH (17:18)
[2017-04-18] MEDS: XANAX PO SCH (21:20)
[2017-04-19] MEDS: DUONEB (A & A) INH SCH ×2 (03:35→09:24)
[2017-04-19] MEDS: PRILOSEC PO SCH ×2 (05:26→08:25)
[2017-04-19] MEDS: HUMULIN R SUBQ SCH ×2 (06:46→12:01)
[2017-04-19] MEDS: NORCO-10 PO PRN (06:50)
[2017-04-19 07:03] LABS: BASO% 0.1 % (0.0-0.8); HEMATOCRIT 33.7 % (37.0-47.0); HEMOGLOBIN 9.5 g/dL (12.0-16.0); IMM GRAN# 0.18 X1000 (0.0-0.04); LYMPH# 3.76 X1000 (1.2-3.4); LYMPH% 21.2 % (20.5-51.1); MANUAL DIFF NEEDED? YES; MCH 23.5 PG (27-31); MCHC 28.2 g/dL (33-37); MCV 83.4 FL (81-99); MONO# 1.23 X1000 (0.11-0.59); MONO% 6.9 % (1.7-9.3); NEUT% 70.8 % (42.2-75.2); PLT 376 X1000 (130-400); RBC 4.04 XMIL (4.2-5.4)
[2017-04-19 07:06] LABS: AGAP 10; BUN 22 mg/dL (8-22); CALCIUM 9.1 mg/dL (8.8-10.2); CHLORIDE 96 mmol/L (98-107); COSMO 284; POTASSIUM 4.2 mmol/L (3.5-5.1); SODIUM 141 mmol/L (136-145); TCO2 35 mmol/L (25-35)
[2017-04-19 07:51] LABS: HYPOCHROM 2+; LYMPHS 24 % (21-51); MONO 2 % (1-9)
[2017-04-19] MEDS: LASIX PO SCH (08:26)
[2017-04-19] MEDS: PRINZIDE 10/12.5MG PO SCH (08:26)
[2017-04-19] MEDS: KLOR-CON PO SCH (08:26)
[2017-04-19] MEDS: MUCINEX PO SCH (08:26)
[2017-04-19] MEDS: LOVENOX SUBQ SCH (08:26)
[2017-04-19] MEDS: LANTUS SUBQ SCH (08:26)
[2017-04-19] MEDS: MYCOSTATIN SUSP PO SCH ×2 (08:27→12:01)
[2017-04-19] MEDS: ASPIRIN PO SCH (08:29)
[2017-04-19] MEDS: ICAR-C PO SCH (08:29)
[2017-04-19] MEDS: FOLIC ACID PO SCH (08:29)
[2017-04-19] MEDS ORDERED: PREDNISONE PO SCH (09:00)
[2017-04-19] MEDS: PULMICORT INH SCH (09:24)
[2017-04-19] MEDS: MUCOMYST 20% INH SCH (09:24)
[2017-04-19 11:43] VITALS: BP 121/62
--- NOTE | 2017-04-19 20:58 | DISCHARGE SUMMARY ---
ADMISSION DATE: 04/15/2017 DISCHARGE DATE: 04/19/2017 DISCHARGE DIAGNOSES: 1. Chronic obstructive pulmonary disease exacerbation resolved. 2. Obstructive sleep apnea. 3. Uncontrolled type 2 diabetes. 4. Leukocytosis. 5. Morbid obesity. 6. Hypertension. HISTORY OF PRESENT ILLNESS: 46-year-old morbidly obese female with a past medical history of COPD, diabetes, obstructive sleep apnea came to the emergency department and was admitted on 04/15/2017 secondary to shortness of breath and chills for 2 days. As per the patient she had nonproductive cough that is worse at night, her shortness of breath is worse when she is talking and with physical activity. Workup at the emergency department revealed high WBC at 15,000 but it also appears to be chronic for her and physical examination showed expiatory wheezes mostly at the level of the upper lobes posteriorly, she was admitted under the diagnosis of COPD exacerbation, we started this patient on antibiotics and breathing treatment, steroids and oxygen. She was improving on a daily basis. Today this patient is asymptomatic, she was tolerating p.o. and she is breathing normally. This is why we discharged this patient with a strict followup by her primary care doctor. As per the patient she has an appointment next Thursday. At the moment of discharge, this patient was stable. DISCHARGE MEDICATIONS: Azithromycin 250 mg p.o. daily for 2 days, prednisone 20 mg p.o. daily for 5 days then it has to be tapered down, I will continue with her home medications, potassium chloride 10 mEq p.o. daily, Dulera 200 mcg/500 mcg inhaler 2 puff inhalation twice a day, furosemide 40 mg p.o. daily, albuterol 2.5 mg inhalation every 4 hours p.r.n., aspirin 81 mg p.o. daily, metformin 1000 mg p.o. twice a day, omeprazole 40 mg p.o. daily, DuoNeb 3 mL inhalation every 4 hours p.r.n., Mucinex 600 mg p.o. twice a day, Icar-C 1 tab p.o. twice a day, folic acid 1 tablet p.o. daily, Spiriva 1 puff daily, lisinopril/hydrochlorothiazide 20/25 mg tablet 1 tablet p.o. twice a day, alprazolam 1 mg p.o. daily, [place] 10 one tablet p.o. q.6 hours p.r.n., insulin Lantus this patient originally was taking 25 units subcu twice a day, I will increase the dose to 35 units subcu twice a day. PHYSICAL EXAM: Vital signs: Temperature 98.2 degrees, pulse 80, respiratory rate 18, blood pressure 121/62, oxygen saturation 99 on 3 L of nasal cannula. HEENT: Head normocephalic. No trauma. PERRLA. Neck: Supple. No JVD. No masses. Central trachea. Chest: Clear to auscultation. No wheezing. No rales. Abdomen: Soft, nontender, nondistended. No hepatosplenomegaly. Obese. Extremities: No edema. No clubbing. No cyanosis. Neurological: The patient is alert, oriented x3. No focal deficits. LABORATORY: WBC 17, hemoglobin 9.5, hematocrit 33.7, platelet 376,000. Sodium 141, potassium 4.2, chloride 96, bicarbonate 35, BUN 22, creatinine 0.6, glucose 84, calcium 9.1. FOLLOWUP: Followup by her primary care doctor, she has an appointment already set up for next Thursday. TIME SPENT: 40 minutes. cc: Yonathan Hopkins MD
[2017-04-20] MEDS ORDERED: ZITHROMAX PO SCH (09:00)
[2017-04-20] MEDS ORDERED: PREDNISONE PO SCH (09:00)
== END 2017-04-19 14:15 | disposition home or self-care (01) ==
LOC: ED 14:49 → 3N 19:44 → SUATTDRO 19:44
PROVIDERS: ATTEND Internal Medicine

== ENCOUNTER 2018-11-18 09:26 | Inpatient (IN) ==
[2018-11-18] MEDS ORDERED: DUONEB (A & A) INH ONE (10:01)
[2018-11-18] MEDS ORDERED: SOLU-MEDROL IV ONE (10:02)
[2018-11-18] MEDS ORDERED: TORADOL IV ONE (10:04)
--- NOTE | 2018-11-18 10:25 | Diag Imaging Result Doc PS360 ---
EXAM: CHEST-PORTABLE HISTORY: dyspnea TECHNIQUE: Portable AP chest compared to 11/16/2018 COMPARISON: 11/16/2018 FINDINGS: The lungs are well expanded. The heart is not enlarged. The vessels are mildly distended. There are no infiltrates. No effusion identified. IMPRESSION: Mild pulmonary edema Electronically signed by Smith Archibald 11/18/2018 10:23 AM
[2018-11-18 10:57] LABS: BE 5.8 mmoll (-2.0-2.0); BLOOD TYPE VENOUS; HCO3-(ACT) 28.2 mmoll (22-27); PCO2(98.6) 48 mmHg (40-60); PO2(98.6) 21 mmHg (30-55); SAMPLE BLOOD; pH(98.6) 7.42 (7.32-7.43)
[2018-11-18 11:11] LABS: BASO# 0.02 X1000 (0.0-0.2); BASO% 0.2 % (0.0-0.8); EOS# 0.06 X1000 (0.0-0.7); EOS% 0.6 % (0.0-10.0); HEMATOCRIT 32.6 % (37.0-47.0); HEMOGLOBIN 8.8 g/dL (12.0-16.0); IMM GRAN# 0.04 X1000 (0.0-0.04); IMM GRAN% 0.4 % (0.0-0.5); LYMPH# 1.18 X1000 (1.2-3.4); LYMPH% 11.2 % (20.5-51.1); MCH 19.6 PG (27-31); MCV 72.8 FL (81-99); MONO% 5.7 % (1.7-9.3); MPV 9.5 FL (7.4-10.4); NEUT# 8.64 X1000 (1.4-6.5); NEUT% 81.9 % (42.2-75.2); PLT 410 X1000 (130-400); RBC 4.48 XMIL (4.2-5.4); RDW 19.5 % (11.5-14.5); WBC 10.54 X1000 (4.8-10.8)
[2018-11-18 11:23] LABS: INFLUENZA A NEGATIVE (NEGATIVE); INFLUENZA B NEGATIVE (NEGATIVE)
[2018-11-18 11:31] LABS: INR 0.97; PROTIME 13.4 Seconds (11.0-16.0)
[2018-11-18 11:37] LABS: AGAP 16; ALKALINE PHOSPHATASE 73 U/L (32-104); BUN 10 mg/dL (8-22); CALCIUM 9.6 mg/dL (8.8-10.2); CHLORIDE 96 mmol/L (98-107); COSMO 278; CREATININE 0.6 mg/dL (0.5-0.9); ESTIMATED GFR > 60; GLUCOSE 129 mg/dL (70-104); GOT 18 U/L (10-30); GPT 12 U/L (10-36); POTASSIUM 3.8 mmol/L (3.5-5.1); SODIUM 139 mmol/L (136-145); TCO2 27 mmol/L (25-35); TOTAL PROTEIN 7.7 g/dL (6.3-8.3)
--- NOTE | 2018-11-18 11:40 | EKG Report ---
Test Performed on : 11/18/2018 11:15:54 AM Test Reason : SOB Blood Pressure : / mmHG Vent. Rate : 103 BPM Atrial Rate : 103 BPM P-R Int : 124 ms QRS Dur : 080 ms QT Int : 304 ms P-R-T Axes : 035 022 055 degrees QTc Int : 398 ms Sinus tachycardia. Nonspecific T wave abnormality Abnormal ECG When compared with ECG of 16-NOV-2018 11:08, (Unconfirmed) Nonspecific T wave abnormality, worse in Inferior leads QT has shortened Unconfirmed Result
[2018-11-18] MEDS ORDERED: LASIX IV ONE (12:19)
[2018-11-18] MEDS ORDERED: PERCOCET-10 PO ONE (12:32)
[2018-11-18] MEDS ORDERED: ZOFRAN IV PRN (14:29)
[2018-11-18] MEDS ORDERED: DUONEB (A & A) INH PRN ×2 (14:29→17:17)
[2018-11-18] MEDS ORDERED: DUONEB (A & A) INH SCH (15:30)
[2018-11-18] MEDS ORDERED: HUMULIN R DOSE (PARKWAY) SUBQ SCH (16:00)
[2018-11-18] MEDS ORDERED: ANTIVERT PO PRN (18:39)
[2018-11-18] MEDS: SOLU-MEDROL IV SCH (19:17)
[2018-11-18] MEDS: NORCO-10 PO PRN (19:17)
[2018-11-18] MEDS: DUONEB (A & A) INH SCH (19:35)
[2018-11-18] MEDS: ROBITUSSIN-DM PO PRN (21:27)
[2018-11-18] MEDS: HUMALOG DOSE (PARKWAY) SUBQ SCH (21:56)
--- NOTE | 2018-11-18 23:12 | HISTORY AND PHYSICAL ---
CHIEF COMPLAINT: Increasing shortness of breath, fever. HISTORY OF PRESENT ILLNESS: This is a 48-year-old female who presented to the emergency room for the second time in 2 days. She complains of increasing shortness of breath with weakness and fatigue that started about 4 days ago. Prior to her 1st ER visit on the , she reported increasing weakness, chest pain with palpation and deep breathing , as well as chills and dizziness and just generalized body aches. At that time, she was diagnosed with atypical chest pain and discharged home with instructions to use her home nebulizer and take [id number] cough syrup. Chest x-ray on the revealed mild central vascular prominence, no consolidation, no pleural effusions. Chest x-ray today revealed no infiltrates, mild pulmonary edema. EKG revealed sinus tachycardia with nonspecific T-wave abnormalities. Heart rate is 103. She was given 40 mg of Lasix along with Toradol and Solu-Medrol and is being admitted for further evaluation and treatment. PAST MEDICAL HISTORY: Diabetes mellitus type 2, iron deficiency anemia, COPD, hypertension, morbid obesity, dyslipidemia and dysarthria in April of 2018. PAST SURGICAL HISTORY: . SOCIAL HISTORY: She denies alcohol, tobacco, or illicit drug use. ALLERGIES: Rocephin and Levaquin. HOME MEDICATIONS: A list will be obtained by the nursing staff and once confirmed we will review and restart as appropriate. REVIEW OF SYSTEMS: Discussed with patient with pertinent positives stated in the HPI. She denied any syncope, any nausea, vomiting, diarrhea, constipation, black or bloody vomitus or stools, hematuria, dysuria, frequency, urgency. PHYSICAL EXAMINATION: GENERAL: This is a 48-year-old morbidly obese female who is sitting up in the stretcher in the ER in mild distress. VITAL SIGNS: Blood pressure is 115/64 with a heart rate of 98, respirations are 20 to 22, temperature is 99.4 degrees with O2 saturation 96% on 2 L nasal cannula. EYES: Pupils are equal, round, react to light. EOMs are intact sclerae anicteric. HENT: Head is normocephalic, atraumatic. Mucous membranes are moist. NECK: Supple with trachea midline. CARDIOVASCULAR: Regular rate and rhythm. She is tachycardic. S1 and S2 appreciated. She has bilateral pitting edema up to her anterior thigh. She does have peripheral pulses palpable x4 extremities. PULMONARY: Breath sounds are diminished throughout. Chest rises and falls symmetric with respiration. ABDOMEN: Large, soft, nontender, nondistended with bowel sounds in all 4 quadrants. NEUROLOGIC: She is alert and oriented x3. Dysarthria is noted which according to her chart began in April of 2018 and she is followed by Dr. Rebolledo. LABS: WBC is 10.5 with hemoglobin 8.8, hematocrit 32.6 and platelets of 410, 000. Sodium is 139, potassium 3.8, BUN 10, creatinine 0.6, glucose of 129. Troponin is negative. Flu A and B are negative. Chest x-ray reveals mild pulmonary edema. ASSESSMENT AND PLAN: 1. Pulmonary edema. 2. Chest pain. 3. History of congestive heart failure. 4. Diabetes mellitus type 2. 5. Iron deficiency anemia. 6. Chronic obstructive pulmonary disease. 7. Hypertension. 8. Expressive aphasia. 9. Noncompliance with medications. PLAN: The patient will be admitted to the medical/surgical floor. She will be placed on telemetry. We will give supplemental oxygen, give DuoNeb q.4 hours with q.2 hours p.r.n. We will give steroids to taper. We will diurese with IV Lasix b.i.d. She will be placed on pattern blood glucose with sliding scale insulin. We will review her home medications once they are confirmed and restart these as appropriate. Further treatments pending hospital course. Dictated by CORY Rosenberg for Gio Saenz MD This chart was documented by, CORY Rosenberg and accurately reflects the services performed, treatment plan and medical decisions as attested by the providers signature Gio Saenz MD. cc: CORY Rosenberg MD [facility]
[2018-11-18] MEDS: LASIX IV SCH (23:40)
[2018-11-19] MEDS: DUONEB (A & A) INH SCH ×7 (00:12→23:00)
[2018-11-19] MEDS: NORCO-10 PO PRN ×3 (01:31→19:28)
[2018-11-19] MEDS: ROBITUSSIN-DM PO PRN ×3 (01:31→19:29)
[2018-11-19] MEDS: ZOFRAN IV PRN (01:34)
[2018-11-19] MEDS: SOLU-MEDROL IV SCH ×3 (02:09→18:55)
--- NOTE | 2018-11-19 04:12 | HISTORY AND PHYSICAL ---
ADDENDUM: Patient seen and examined by myself in the ER along with the nurse practitioner. Full note dictated and discussed with nurse practitioner. The patient presented to the hospital with several day history of cough, congestion, shortness of breath. She has a known history of congestive heart failure, COPD and sleep apnea as well as a stroke. Chest x-ray demonstrates mild pulmonary edema. PLAN: We will admit patient to the hospital, treat in the usual fashion for congestive heart failure exacerbation. We will continue her home medications for her COPD and we will follow. cc: Gio Saenz MD
[2018-11-19] MEDS: HUMALOG DOSE (PARKWAY) SUBQ SCH ×4 (06:28→21:27)
[2018-11-19] MEDS: PRILOSEC PO SCH (06:28)
[2018-11-19 06:33] LABS: HEMATOCRIT 32.2 % (37.0-47.0); HEMOGLOBIN 8.4 g/dL (12.0-16.0); MCH 19.3 PG (27-31); MCHC 26.1 g/dL (33-37); MCV 73.9 FL (81-99); MPV 9.8 FL (7.4-10.4); RBC 4.36 XMIL (4.2-5.4); RDW 19.7 % (11.5-14.5); WBC 13.02 X1000 (4.8-10.8)
[2018-11-19 06:51] LABS: AGAP 16; ALBUMIN 3.7 g/dL (3.5-5.0); ALKALINE PHOSPHATASE 67 U/L (32-104); BUN 18 mg/dL (8-22); CALCIUM 9.5 mg/dL (8.8-10.2); CHLORIDE 95 mmol/L (98-107); COSMO 285; CREATININE 0.7 mg/dL (0.5-0.9); ESTIMATED GFR > 60; GLUCOSE 294 mg/dL (70-104); GOT 16 U/L (10-30); GPT 12 U/L (10-36); MAGNESIUM 1.5 mg/dL (1.5-2.7); POTASSIUM 3.8 mmol/L (3.5-5.1); SODIUM 136 mmol/L (136-145); TCO2 26 mmol/L (25-35)
[2018-11-19] MEDS: LASIX IV SCH ×2 (09:49→21:27)
[2018-11-19] MEDS: PRINIVIL PO SCH (09:50)
[2018-11-19] MEDS: ASPIRIN PO SCH (09:50)
[2018-11-19] MEDS: GLUCOPHAGE PO SCH ×2 (09:50→16:46)
[2018-11-19] MEDS: FOLIC ACID PO SCH (09:51)
--- NOTE | 2018-11-20 01:09 | PROGRESS NOTE ---
DATE: 11/19/2018 SUBJECTIVE: Patient notes she is still having lots of shortness of breath, cough and congestion. Denies any fevers or chills. Denies any chest pain. PHYSICAL EXAMINATION: Vital Signs: Temperature 97.8 degrees, pulse 89, respiratory 20, BP 108/64. General: Patient is awake, alert. She is currently in mild respiratory distress. She is sitting up in the bed. HEENT: Normocephalic. Neck: Supple. CARDIOVASCULAR: Regular rate. Chest: Positive wheezing. Decreased breath sounds bilaterally. Abdomen: Soft, nondistended. ASSESSMENT: 1. Pulmonary edema. 2. Chest pain. 3. Congestive heart failure. 4. Diabetes. 5. Iron deficiency. 6. Chronic obstructive pulmonary disease. PLAN: Continue patient in the hospital, IV fluids. Continue to follow. Sliding scale insulin. cc: Gio Saenz MD
[2018-11-20] MEDS: SOLU-MEDROL IV SCH ×3 (02:09→18:01)
[2018-11-20] MEDS: DUONEB (A & A) INH SCH ×6 (03:22→23:37)
[2018-11-20] MEDS: PRILOSEC PO SCH (06:10)
[2018-11-20] MEDS: HUMALOG DOSE (PARKWAY) SUBQ SCH ×4 (06:11→20:03)
[2018-11-20] MEDS: ROBITUSSIN-DM PO PRN ×2 (08:30→18:01)
[2018-11-20] MEDS: LASIX IV SCH ×2 (08:31→20:41)
[2018-11-20] MEDS: PRINIVIL PO SCH (08:31)
[2018-11-20] MEDS: FOLIC ACID PO SCH (08:31)
[2018-11-20] MEDS: ASPIRIN PO SCH (08:31)
[2018-11-20] MEDS: GLUCOPHAGE PO SCH ×2 (08:31→16:03)
[2018-11-20] MEDS: NORCO-10 PO PRN ×2 (08:31→18:00)
[2018-11-20] MEDS: ZOFRAN IV PRN (18:26)
--- NOTE | 2018-11-20 23:30 | PROGRESS NOTE ---
DATE: 11/20/2018 SUBJECTIVE: Patient notes she is still having lots of shortness of breath and wheezing although states she may be feeling a little bit better. PHYSICAL EXAMINATION: Vital Signs: Temperature 97.8 degrees, pulse 89, respiratory 20, BP 108/64. General: Patient is awake. Currently in moderate respiratory distress. HEENT: Normocephalic. Neck: Supple. Cardiovascular: Regular rate. Chest: Decreased breath sounds bilaterally, but also decreased secondary to body habitus. Marked wheezing. Abdomen: Soft, obese, nondistended. Extremities: Moves all extremities. Positive edema. ASSESSMENT: 1. Pulmonary edema. 2. Congestive heart failure exacerbation, systolic. 3. Diabetes. 4. Chronic obstructive pulmonary disease with exacerbation. 5. Hypertension. 6. Expressive aphasia. 7. Medical noncompliance. PLAN: We will continue patient in hospital. We will decrease her Solu-Medrol to 40 IV q.8. We will continue sliding scale insulin. Further orders as needed. cc: Gio Saenz MD
[2018-11-21] MEDS: NORCO-10 PO PRN ×3 (02:29→17:15)
[2018-11-21] MEDS: ROBITUSSIN-DM PO PRN ×3 (02:29→17:16)
[2018-11-21] MEDS: SOLU-MEDROL IV SCH ×3 (02:30→17:17)
[2018-11-21] MEDS: DUONEB (A & A) INH SCH ×6 (02:59→23:03)
[2018-11-21 07:35] LABS: AGAP 15; BUN 38 mg/dL (8-22); CALCIUM 9.7 mg/dL (8.8-10.2); CHLORIDE 92 mmol/L (98-107); COSMO 293; CREATININE 0.8 mg/dL (0.5-0.9); ESTIMATED GFR > 60; GLUCOSE 284 mg/dL (70-104); POTASSIUM 4.6 mmol/L (3.5-5.1); SODIUM 137 mmol/L (136-145); TCO2 30 mmol/L (25-35)
[2018-11-21 07:36] LABS: HEMOGLOBIN 8.3 g/dL (12.0-16.0); MCH 19.6 PG (27-31); MCHC 25.9 g/dL (33-37); MCV 75.5 FL (81-99); MPV 10.4 FL (7.4-10.4); RBC 4.24 XMIL (4.2-5.4); RDW 19.6 % (11.5-14.5); WBC 19.79 X1000 (4.8-10.8)
[2018-11-21] MEDS: HUMALOG DOSE (PARKWAY) SUBQ SCH ×4 (07:55→22:10)
[2018-11-21] MEDS: GLUCOPHAGE PO SCH ×2 (07:56→17:17)
[2018-11-21] MEDS: PRILOSEC PO SCH (07:56)
[2018-11-21] MEDS: ASPIRIN PO SCH (08:02)
[2018-11-21] MEDS: FOLIC ACID PO SCH (08:02)
[2018-11-21] MEDS: PRINIVIL PO SCH (08:02)
[2018-11-21] MEDS: LASIX IV SCH ×2 (08:03→22:10)
[2018-11-21] MEDS: ZOFRAN IV PRN (17:33)
--- NOTE | 2018-11-21 19:08 | PROGRESS NOTE ---
DATE: 11/21/2018 SUBJECTIVE: The patient notes she is still short of breath, still having productive cough, but overall is improving. Denies any chest pain or palpitations. PHYSICAL EXAMINATION: Vital Signs: Temp 97.4, pulse 68, respiratory 20, BP 124/58. General: Patient is awake. Currently she is in mild respiratory distress, but improved from yesterday's exam. HEENT: Normocephalic. Neck: Supple. Cardiovascular: Regular rate. No murmurs. Chest: Decreased breath sounds, positive wheezing but faintly much improved from yesterday's exam. Abdomen: Soft, obese, nondistended. Extremities: Moves all extremities. ASSESSMENT: 1. Chronic obstructive pulmonary disease with exacerbation. 2. Pulmonary edema, improved. 3. Diabetes. 4. Iron deficiency. 5. Expressive aphasia. 6. Leukocytosis. PLAN: Will continue patient in the hospital, decrease Solu-Medrol to 40 IV q.8. Continue to follow blood sugars with sliding scale insulin. Continue breathing treatments, oxygen and will follow. cc: Gio Saenz MD
[2018-11-22] MEDS: SOLU-MEDROL IV SCH ×3 (02:00→20:32)
[2018-11-22] MEDS: NORCO-10 PO PRN ×3 (02:00→18:27)
[2018-11-22] MEDS: ZOFRAN IV PRN ×3 (02:00→18:27)
[2018-11-22] MEDS: ROBITUSSIN-DM PO PRN ×4 (02:00→18:27)
[2018-11-22] MEDS: DUONEB (A & A) INH SCH ×6 (03:21→22:58)
[2018-11-22] MEDS: PRILOSEC PO SCH (06:37)
[2018-11-22] MEDS: HUMALOG DOSE (PARKWAY) SUBQ SCH ×4 (06:38→23:06)
[2018-11-22 06:56] LABS: HEMATOCRIT 32.6 % (37.0-47.0); HEMOGLOBIN 8.7 g/dL (12.0-16.0); MCH 20.1 PG (27-31); MCHC 26.7 g/dL (33-37); MCV 75.3 FL (81-99); MPV 10.2 FL (7.4-10.4); RBC 4.33 XMIL (4.2-5.4); RDW 19.4 % (11.5-14.5); WBC 17.58 X1000 (4.8-10.8)
[2018-11-22 07:08] LABS: AGAP 14; ALBUMIN 3.6 g/dL (3.5-5.0); ALKALINE PHOSPHATASE 60 U/L (32-104); BUN 37 mg/dL (8-22); CALCIUM 9.6 mg/dL (8.8-10.2); CHLORIDE 92 mmol/L (98-107); COSMO 296; CREATININE 0.7 mg/dL (0.5-0.9); ESTIMATED GFR > 60; GLUCOSE 337 mg/dL (70-104); GOT 14 U/L (10-30); GPT 13 U/L (10-36); MAGNESIUM 1.7 mg/dL (1.5-2.7); POTASSIUM 4.6 mmol/L (3.5-5.1); SODIUM 137 mmol/L (136-145); TCO2 31 mmol/L (25-35); TOTAL PROTEIN 7.7 g/dL (6.3-8.3)
--- NOTE | 2018-11-22 07:56 | Diag Imaging Result Doc PS360 ---
EXAM: CHEST-2 VIEWS - 11/22/2018 HISTORY: hypoxia TECHNIQUE: Chest two views COMPARISON: 11/18/2018 portable chest FINDINGS: Heart size is normal. There is some perihilar/infrahilar atelectasis on the left which has increased. There is no substantial pleural effusion or pneumothorax identified. IMPRESSION: Perihilar/infrahilar atelectasis on the left which has increased. Electronically signed by Frandy Shultz 11/22/2018 7:54 AM
[2018-11-22] MEDS: PRINIVIL PO SCH (08:22)
[2018-11-22] MEDS: GLUCOPHAGE PO SCH ×2 (08:22→16:11)
[2018-11-22] MEDS: LASIX IV SCH ×2 (08:22→20:32)
[2018-11-22] MEDS: ASPIRIN PO SCH (08:22)
[2018-11-22] MEDS: FOLIC ACID PO SCH (08:22)
--- NOTE | 2018-11-22 19:25 | PROGRESS NOTE ---
DATE: 11/22/2018 SUBJECTIVE: Patient has no major complaints. She has some degree of aphasia but that has never been associated with a true ischemic stroke. OBJECTIVE: Blood pressure is 137/64, heart rate of 80, respiratory 20, temperature 97.5 degrees, 98% on 2 L.Cardiovascular: Regular rate and rhythm. Pulmonary: Bilateral breath sounds. Clear to auscultation. GI: Soft, nontender, nondistended. Bowel sounds are positive. Her lungs are relatively clear. LABORATORY DATA: Her white count is 17, hemoglobin and hematocrit 8 and 32, platelets 422,000. Basic was normal. PROBLEM LIST: 1. Acute chronic obstructive pulmonary disease exacerbation, bronchitis. We will continue steroids. I have decreased her steroids to q.12. 2. Pulmonary edema. She is on some diuretics. We will continue to follow. 3. Diabetes appears to be relatively well controlled considering she is on steroids. DISPOSITION: I think if she is stable probably let her go home soon in the next 24 hours, will continue to follow closely. cc: Lionel Blackburn MD
[2018-11-23] MEDS: HUMALOG DOSE (PARKWAY) SUBQ SCH ×6 (00:47→22:41)
[2018-11-23] MEDS: DUONEB (A & A) INH SCH ×6 (02:58→22:43)
[2018-11-23 06:24] LABS: BASO# 0.03 X1000 (0.0-0.2); BASO% 0.1 % (0.0-0.8); HEMATOCRIT 35.8 % (37.0-47.0); HEMOGLOBIN 9.2 g/dL (12.0-16.0); IMM GRAN# 0.56 X1000 (0.0-0.04); IMM GRAN% 2.4 % (0.0-0.5); LYMPH# 2.93 X1000 (1.2-3.4); LYMPH% 12.7 % (20.5-51.1); MCHC 25.7 g/dL (33-37); MCV 74.1 FL (81-99); MONO# 1.39 X1000 (0.11-0.59); MPV 10.3 FL (7.4-10.4); NEUT# 18.13 X1000 (1.4-6.5); NEUT% 78.8 % (42.2-75.2); PLT 479 X1000 (130-400); RBC 4.83 XMIL (4.2-5.4); RDW 19.4 % (11.5-14.5); WBC 23.04 X1000 (4.8-10.8)
[2018-11-23 06:31] LABS: AGAP 15; BUN 38 mg/dL (8-22); CHLORIDE 92 mmol/L (98-107); COSMO 292; CREATININE 0.7 mg/dL (0.5-0.9); ESTIMATED GFR > 60; GLUCOSE 201 mg/dL (70-104); POTASSIUM 4.1 mmol/L (3.5-5.1); SODIUM 139 mmol/L (136-145); TCO2 33 mmol/L (25-35)
[2018-11-23] MEDS: LOVENOX SUBQ SCH (06:58)
[2018-11-23] MEDS: PRILOSEC PO SCH (06:58)
[2018-11-23] MEDS: SOLU-MEDROL IV SCH (07:48)
[2018-11-23] MEDS: ASPIRIN PO SCH ×2 (07:49→08:06)
[2018-11-23] MEDS: FOLIC ACID PO SCH ×2 (07:49→08:06)
[2018-11-23] MEDS: LASIX IV SCH ×2 (07:49→08:06)
[2018-11-23] MEDS: PRINIVIL PO SCH ×2 (07:49→08:06)
[2018-11-23] MEDS: GLUCOPHAGE PO SCH ×2 (07:49→17:41)
[2018-11-23 08:09] LABS: ANISOCYTOSIS 1+; LYMPHS 11 % (21-51); MONO 5 % (1-9); SEGS 84 % (42-75)
[2018-11-23] MEDS: ZOFRAN IV PRN ×2 (11:18→22:43)
[2018-11-23] MEDS: NORCO-10 PO PRN ×2 (15:12→22:39)
[2018-11-23] MEDS: ROBITUSSIN-DM PO PRN (19:45)
[2018-11-23] MEDS ORDERED: BASAGLAR SUBQ SCH (21:00)
--- NOTE | 2018-11-23 21:58 | PROGRESS NOTE ---
DATE: 11/23/2018 SUBJECTIVE: The patient has no focal complaints. OBJECTIVE: Vital Signs: Blood pressure is 132/59, heart rate of 88, respiratory rate of 20, temperature was 98.3 degrees, 93% on 2 L. She says she is not breathing as well today, or does not feel as well today. Cardiovascular: Regular rate and rhythm. Pulmonary: Diminished at the bases, but no wheezing. GI: Soft, nontender, nondistended. Bowel sounds were positive. LABORATORY DATA: White count 23, hemoglobin and hematocrit of 9 and 35, platelets 479,000. Basic was okay. Her sugars are still through the roof. PROBLEM LIST: 1. Acute chronic obstructive pulmonary disease exacerbation. We will continue treatment. She is not on any antibiotics. I am going to start some doxycycline. She is allergic to Levaquin, and she is allergic to Rocephin. We will see if this helps with that. I am going to decrease her steroids. 2. Uncontrolled diabetes. We will continue treatment. She is just on metformin, and that is probably not going to be enough to control her diabetes. Her A1c we have not checked. I am going to check that. I am going to add some low-dose Lantus too. 3. Hypertension. Aware of diagnosis. DISPOSITION: I think hopefully we can get her home in the next 1 to 2 days. I am looking at tomorrow, but it will depend on how she does overall. cc: Lionel Blackburn MD
[2018-11-23] MEDS: DOXYCYCLINE 100 MG in NS 250 ML IV SCH (22:38)
[2018-11-24] MEDS: DUONEB (A & A) INH SCH ×4 (03:33→15:19)
[2018-11-24] MEDS: HUMALOG DOSE (PARKWAY) SUBQ SCH ×2 (06:33→12:10)
[2018-11-24] MEDS: LOVENOX SUBQ SCH (06:33)
[2018-11-24] MEDS: PRILOSEC PO SCH (06:34)
[2018-11-24] MEDS: ROBITUSSIN-DM PO PRN ×2 (06:41→12:40)
[2018-11-24] MEDS: FOLIC ACID PO SCH ×2 (07:49→12:04)
[2018-11-24] MEDS: GLUCOPHAGE PO SCH (07:49)
[2018-11-24] MEDS: ASPIRIN PO SCH ×2 (07:49→12:03)
[2018-11-24] MEDS: DOXYCYCLINE 100 MG in NS 250 ML IV SCH ×3 (07:49→15:00)
[2018-11-24] MEDS: PRINIVIL PO SCH ×2 (07:49→12:08)
[2018-11-24] MEDS: SOLU-MEDROL IV SCH ×3 (07:50→12:40)
[2018-11-24 07:58] LABS: BASO# 0.03 X1000 (0.0-0.2); BASO% 0.1 % (0.0-0.8); EOS# 0.01 X1000 (0.0-0.7); HEMATOCRIT 33.6 % (37.0-47.0); HEMOGLOBIN 8.8 g/dL (12.0-16.0); IMM GRAN# 0.45 X1000 (0.0-0.04); IMM GRAN% 2.2 % (0.0-0.5); LYMPH# 5.54 X1000 (1.2-3.4); LYMPH% 27.4 % (20.5-51.1); MCH 19.6 PG (27-31); MCHC 26.2 g/dL (33-37); MONO# 1.13 X1000 (0.11-0.59); MONO% 5.6 % (1.7-9.3); MPV 10.1 FL (7.4-10.4); NEUT# 13.08 X1000 (1.4-6.5); NEUT% 64.7 % (42.2-75.2); PLT 402 X1000 (130-400); RBC 4.48 XMIL (4.2-5.4); RDW 19.1 % (11.5-14.5); WBC 20.24 X1000 (4.8-10.8)
[2018-11-24 08:00] LABS: HEMOGLOBIN A1C 7.1 % (4.8-6.0)
--- NOTE | 2018-11-24 08:00 | Diag Imaging Result Doc PS360 ---
EXAM: CHEST-PORTABLE - 11/24/2018 HISTORY: dyspnea TECHNIQUE: Portable chest COMPARISON: None. FINDINGS: There is some limitation of detail at the lung bases due to soft tissue overlap and lordotic projection. There has been apparent decrease in perihilar infiltrate/atelectasis on the left. The right lung appears grossly clear. There is no substantial pleural effusion or pneumothorax identified. Heart size appears within normal limits. IMPRESSION: Apparent decrease in perihilar infiltrate/atelectasis on the left. Electronically signed by Frandy Shultz 11/24/2018 7:58 AM
[2018-11-24 08:10] LABS: AGAP 13; BUN 43 mg/dL (8-22); CALCIUM 9.7 mg/dL (8.8-10.2); CHLORIDE 94 mmol/L (98-107); COSMO 294; CREATININE 0.8 mg/dL (0.5-0.9); ESTIMATED GFR > 60; GLUCOSE 196 mg/dL (70-104); SODIUM 139 mmol/L (136-145); TCO2 32 mmol/L (25-35)
[2018-11-24 09:08] LABS: ANISOCYTOSIS 2+; BANDS 1 % (0-1); LYMPHS 28 % (21-51); MICROCYTOSIS 1+; MONO 4 % (1-9); SEGS 66 % (42-75)
[2018-11-24 09:09] LABS: TARGET CELLS OCCASIONAL
[2018-11-24] MEDS: ZOFRAN IV PRN (12:40)
[2018-11-24] MEDS: NORCO-10 PO PRN (12:40)
[2018-11-24 18:16] VITALS: BP 120/61
--- NOTE | 2018-11-25 09:43 | DISCHARGE SUMMARY ---
ADMISSION DATE: 11/18/2018 DISCHARGE DATE: 11/24/2018 PRIMARY CARE PHYSICIAN: Dr. Bran. ADMISSION DIAGNOSES: 1. Pulmonary edema. 2. Chest pain. 3. History of congestive heart failure. 4. Diabetes. 5. Iron-deficiency anemia. 6. Chronic obstructive pulmonary disease. 7. Hypertension. 8. Expressive aphasia. 9. Noncompliance with medication. DISCHARGE DIAGNOSES: 1. Acute chronic obstructive pulmonary disease exacerbation. 2. Uncontrolled diabetes. 3. Hypertension. 4. Others. SUMMARY OF FINDINGS: This is a 48-year-old female who presented with a 4-day history of increased shortness of breath and weakness. She first came to the ER on 11/16/2018 with reported increased weakness, chest pain with palpitations and deep breathing, as well as chills and dizziness and generalized body aches. She was diagnosed with an atypical chest pain, and discharged home with instructions to use her nebulizer and take [id number] cough syrup. Chest x-ray on 11/16/2018 revealed mild central vascular prominence, but no consolidation. No pleural effusions. Chest x-ray on admission showed no infiltrates and mild pulmonary edema. She was given Lasix 40, along with Toradol and Solu-Medrol, and was admitted, along with supplemental O2, and steroids weaned and tapered. She has responded well to her treatment. Her white blood cell count is elevated, but it is down secondary to steroids today at 20.24. She states she is feeling much better. She is saturating 95% on 2 L via nasal cannula. It is felt that since she has been afebrile for greater than 24 hours and that she has clinically improved, that she can be discharged home today. DISCHARGE MEDICATIONS: Include DuoNebs every 4 hours (#120 with 1 refill), aspirin 81 mg p.o. every a.m., folic acid 1 mg p.o. daily, [place] 10 one p.o. t.i.d. p.r.n., meclizine 25 mg p.o. every 8 hours p.r.n., Glucophage 1000 mg p.o. b.i.d., omeprazole 40 mg p.o. daily, doxycycline prescription 100 mg p.o. b.i.d. (#14 with no refill), Victoza 1.8 mg subcutaneously daily (#30 with no refill), prednisone 20 mg p.o. daily (#5 with no refills). DISCHARGE INSTRUCTIONS: She will need to follow up with her primary care physician in 1 to 2 weeks, and call the office for an appointment. All discharge instructions have been reviewed with the patient, and she verbalized understanding. TIME SPENT: A 32-minute discharge. Dictated by CORY Love for Lionel Blackburn MD cc: CORY Love MD Moses Awoniyi, MD
--- NOTE | 2018-11-25 11:16 | DISCHARGE SUMMARY ---
ADMISSION DATE: 11/18/2018 DISCHARGE DATE: 11/24/2018 DISCHARGE DIAGNOSES: 1. Chronic obstructive pulmonary disease exacerbation. 2. Morbid obesity with obesity hypoventilation. 3. Uncontrolled diabetes. PLAN: Plan is to discharge her today. She is breathing comfortably. She is going to require home oxygen. We have gone ahead and set that up. Her chest x-ray looks improved. We will discharge her on doxycycline 100 b.i.d. for another 7 days, Victoza, prednisone 20 for 5 days, DuoNebs. Follow up with Dr. Bran in 1 to 2 weeks. Return for worsening shortness of breath. cc: Lionel Blackburn MD
--- NOTE | 2018-11-25 17:13 | PROVIDER DOCUMENTATION ---
This chart was entered by Salma Osorio Scribe, acting as scribe for Ching Schultz MD. HPI-Respiratory General - General Chief Complaint: Shortness of Breath Stated Complaint: SORE THROAT / COUGH / SOB Time Seen by Provider: 11/18/18 09:46 Source: patient Allergies/Adverse Reactions: Patient Allergies Allergy/AdvReac Type Severity Reaction Status Date / Time levofloxacin [From Levaquin] Allergy Intermediate RASH Verified 05/26/18 20:42 ceftriaxone sodium * Allergy Mild RASH Verified 05/26/18 20:42 [From Rocephin] Home Medications: Home Medication List Medication Instructions Recorded Confirmed Last Taken Type Aspirin 81 mg PO QAM #0 chewtab 06/03/15 11/16/18 01/12/18 08:00 Rx Metformin [Glucophage] 1,000 mg PO BID CC #60 tablet 06/03/15 11/16/18 01/12/18 08:00 Rx Albuterol 2.5MG/Ipratrop 0.5MG 3 ml INH Q4H PRN PRN #5 neb 07/09/16 11/16/18 20:00 Rx [Duoneb (A & A)] Folic Acid 1 mg PO DAILY #60 tablet 02/04/17 11/16/18 01/12/18 08:00 Rx Hydrocodone/APAP 10 mg/325 mg 1 each PO TID PRN 04/29/18 11/16/18 Unknown History [[place]ors[place]-10] Lisinopril 20 mg PO DAILY 04/29/18 11/16/18 Unknown History Omeprazole 40 mg PO DAILY@0700 04/29/18 11/16/18 Unknown History Zolpidem Tartrate 5 mg PO DAILY 04/29/18 11/16/18 Unknown History Meclizine HCl [[employer] 2] 1 tab PO Q8HR PRN #12 tab 05/26/18 11/16/18 Unknown Rx - History of Present Illness-Resp Nature of Presenting Problem: Patient is a 48 year old female who presents to the ED with shortness of breath. Patient states cough and sore throat. Patient states symptoms have worsened. Patient states taking breathing treatments and using her inhaler with no relief. Patient denies fever. Quality of Pain: reports: tightness Severity in ED: reports: moderate Onset/Duration: reports: this morning Timing: reports: still present, getting worse Cough Quality/Degree: reports: moderate, productive cough Episode Frequency: occasional episodes Current Respiratory Medication Therapy: Initiated see nurses note Modifying Factors: improves with: nothing Associated Symptoms: reports: cough, shortness of breath, sore throat Similar Symptoms Previously?: Yes Recently seen or treated by another doctor?: Yes Review of Systems - Adult - REVIEW OF SYSTEMS - ADULT Constitutional: reports: no symptoms reported Eyes: reports: no symptoms reported Ears, Nose, Mouth & Throat: reports: throat pain. denies: ear pain, nose pain Cardiovascular: reports: no symptoms reported Respiratory: reports: cough, shortness of breath. denies: wheezing Gastrointestinal: reports: no symptoms reported Genitourinary: reports: no symptoms reported Musculoskeletal: reports: no symptoms reported Integumentary: reports: no symptoms reported Neurological: reports: no symptoms reported Psychiatric: reports: no symptoms reported Endocrine: reports: no symptoms reported Hematologic/Lymphatic: reports: no symptoms reported Allergic/Immunologic: reports: no symptoms reported All Other Systems: Reviewed and Negative Past History - Adult - PAST MEDICAL HISTORY-ADULT Review of Records: reports: Nursing Assessment Review, Medications Reviewed, Social history reviewed & non-contributory. Major Childhood Illnesses: reports: denies history Cardiovascular: reports: CHF, HTN, hyperlipidemia Respiratory: reports: asthma, COPD, sleep apnea Gastrointestinal: reports: GERD Obstetrical/Gynecological: reports: denies history Genitourinary: reports: denies history Musculoskeletal: reports: arthritis, chronic pain Neurological: reports: CVA Psychiatric: reports: depression Endocrine/Immune: reports: anemia, Diabetes Other Conditions: reports: other (morbid obesity) - PRIOR SURGERIES/PROCEDURES Surgical/Procedure History: reports: - IMMUNIZATION STATUS Childhood Immunizations: See Nurse Assessment Flu Vaccine: See Nurse Assessment - FAMILY HISTORY Family History: reviewed, not pertinent - SOCIAL HISTORY Smoking: denies Substance Use: alcohol Alcohol Use Frequency: occasionally Living Situation: family Physical Exam-General - PHYSICAL EXAM-ADULT Exam Limited by: mildy by speech changes post distant CVA Initial Vital Signs Reviewed: Yes - CONSTITUTIONAL General Appearance: alert, mild distress, obese, other (Having same chest pain when short of breath two days ago when I saw her at [facility], pleuritic pain, on 10 mg pain med TID and did not take her pain med this am or her lasix) - EYES Eyes: PERRL/EOMI, pink conjunctivae - HEAD, EARS, NOSE, MOUTH & THROAT HENMT: moist mucous membranes, normal ENT inspection - NECK Neck: non-tender, full range of motion, supple - RESPIRATORY Respiratory: chest non-tender, lungs clear, no accessory muscle use, wheezing ( mild diffuse), pain on inspiration - CARDIOVASCULAR Cardiovascular: normal peripheral pulses, regular rate, rhythm - GASTROINTESTINAL (ABDOMEN) Abdominal Exam: non tender, soft - LYMPHATIC Lymphatic: no adenopathy - MUSCULOSKELETAL Extremity: non-tender Peripheral Pulses: radial (R): 2+, radial (L): 2+, dorsalis-pedis (R): 2+, dorsalis-pedis (L): 2+ - SKIN Integumentary: normal color, normal turgor, warm/dry - 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, grossly normal, no motor/sensory deficits , other (post distant CVA speech changes but otherwise at baseline) - PSYCHIATRIC Psych/Mental Status: normal mood/affect, normal thought content, normal thought process, oriented x 3 Progress - PLAN OF CARE/RESULTS Progress/Plan/Lab Results: Vital Signs - 8 hr 11/18/18 09:37 11/18/18 09:47 Temperature 99 F Pulse Rate 104 H 100 H Respiratory Rate 22 24 Blood Pressure 166/100 108/070 O2 Sat by Pulse Oximetry 92 L 95 Laboratory Results - last 24 hr 11/18/18 11/18/18 11/18/18 10:31 10:44 10:51 WBC 10.54 RBC 4.48 Hgb 8.8 L Hct 32.6 L MCV 72.8 L MCH 19.6 L MCHC 27.0 L RDW Std Deviation 19.5 H Plt Count 410 H MPV 9.5 Immature Gran % (Auto) 0.4 Neut % (Auto) 81.9 H Lymph % (Auto) 11.2 L [place] % (Auto) 5.7 Eos % (Auto) 0.6 Baso % (Auto) 0.2 Immature Gran # (Auto) 0.04 Neut # (Auto) 8.64 H Lymph # (Auto) 1.18 L [place] # (Auto) 0.60 H Eos # (Auto) 0.06 Baso # (Auto) 0.02 PT INR Specimen Type VENOUS VBG pH 7.42 VBG pCO2 48 VBG pO2 21 L VBG HCO3 28.2 H VBG O2 Saturation 29.0 L VBG Base Excess 5.8 H VBG Lactate 1.50 Sodium Potassium Chloride Carbon Dioxide Anion Gap BUN Creatinine Estimated GFR/1.73 m2 BUN/Creatinine Ratio Glucose Calculated Osmolality Calcium Total Bilirubin AST ALT Alkaline Phosphatase Troponin T Total Protein Albumin Globulin Albumin/Globulin Ratio Influenza A (Rapid) NEGATIVE Influenza B (Rapid) NEGATIVE 11/18/18 11/18/18 11/18/18 10:51 10:51 10:51 WBC RBC Hgb Hct MCV MCH MCHC RDW Std Deviation Plt Count MPV Immature Gran % (Auto) Neut % (Auto) Lymph % (Auto) [place] % (Auto) Eos % (Auto) Baso % (Auto) Immature Gran # (Auto) Neut # (Auto) Lymph # (Auto) [place] # (Auto) Eos # (Auto) Baso # (Auto) PT 13.4 INR 0.97 Specimen Type VBG pH VBG pCO2 VBG pO2 VBG HCO3 VBG O2 Saturation VBG Base Excess VBG Lactate Sodium 139 Potassium 3.8 Chloride 96 L Carbon Dioxide 27 Anion Gap 16 BUN 10 Creatinine 0.6 Estimated GFR/1.73 m2 > 60 BUN/Creatinine Ratio 17 Glucose 129 H Calculated Osmolality 278 Calcium 9.6 Total Bilirubin 0.40 AST 18 ALT 12 Alkaline Phosphatase 73 Troponin T < 0.010 Total Protein 7.7 Albumin 4.0 Globulin 4.0 Albumin/Globulin Ratio 1.0 Influenza A (Rapid) Influenza B (Rapid) Orders Category Date Time Status CHEST-PORTABLE [RAD] Stat Exams 11/18/18 10:00 Completed BNP [PRO B-NATRIURETIC PEPTIDE] Stat Lab 11/18/18 12:17 Ordered CBC WITH ELECTRONIC DIFF [HEME] Stat Lab 11/18/18 10:51 Completed COMPREHENSIVE METABOLIC PANEL [CHEM] Stat Lab 11/18/18 10:[address] Routine Lab 11/18/18 10:44 Completed PT [PROTIME WITH INR] [COAG] Stat Lab 11/18/18 10:51 Completed TROPONIN T Stat Lab 11/18/18 10:51 Completed VBG [VENOUS BLOOD GAS] [RESP] Routine Lab 11/18/18 10:31 Completed Albuterol 2.5MG/Ipratrop 0.5MG [Duoneb (A & A)] Med 11/18/18 10:01 Discontinued 3 ml INH NOW ONE Furosemide [Lasix] Med 11/18/18 12:19 Once 40 mg IV NOW ONE Ketorolac [Toradol] Med 11/18/18 10:04 Discontinued 30 mg IV NOW ONE Methylprednisolone Sod Succ [Solu-Medrol] Med 11/18/18 10:02 Discontinued 80 mg IV NOW ONE Oxycodone/APAP 10 mg/325 mg [Percocet-10] Med 11/18/18 12:32 Once 1 each PO NOW ONE Aerosol Treatments Routine Oth 11/18/18 10:01 Active Aerosol Treatments Stat Oth 11/18/18 10:01 Active EKG [EKG] Stat Ther 11/18/18 11:10 Draft I saw this pt [facility]th at [facility], review of that chart shows I miswrote info on her chart that belong to another pt without identifying the other patient on the chart. Noted too that the trops that I ordered (my first day working with [facility]) either did not cross over to lab or did not get done. Making sure all that happens today and will likely admit Pt chest xray pos for pulm edema, pt cannot tolerate Bipap per pt, on 2L BNC is 94-96%, on RA 88%, did not take meds this am and needs lasix for the edma, usually take 20mg, will give 40 mg IV, pt on pain med TID, will give her usual, pt unlikely to be able to tolerate laying flat for CT as a thought for further eval. Spoke with [facility] hospitalist Dr Saenz 12:29 re pt , will come down to see pt Result Diagrams: 11/18/18 10:51 11/18/18 10:51 - EKG 1 Time of EKG reading by physician:: 11:15 EKG Read and Signed by:: Ching Schultz EKG Interpretation (*Must complete 3 of following elements*): Abnormal Rate: 103 Rhythm: sinus tachycardia Comments: nonspecific T wave abnormality. - XRAY 1 XRAY Study: Chest Impression: See EMR Report ( EXAM: CHEST-PORTABLE HISTORY: dyspnea TECHNIQUE: Portable AP chest compared to 11/16/2018 COMPARISON: 11/16/2018 FINDINGS: The lungs are well expanded. The heart is not enlarged. The vessels are mildly distended. There are no infiltrates. No effusion identified. IMPRESSION: Mild pulmonary edema Electronically signed by Smith Archibald 10:23 AM 11/18/18 1023 Interpreting Physician: Smith Archibald MD Dictated Date/Time: 11/18/18 1023 cc: Ching Schultz MD; Abdulaziz Bran MD) Departure - Departure Date of Disposition Decision: 11/18/18 Time of Disposition Decision: 12:31 DIAGNOSIS: Dyspnea, Chest pain, CHF (congestive heart failure) Disposition: ADMITTED INPATIENT 09 Certified Medical Emergency: Emergent Condition: Good Referrals and Follow-Ups: Abdulaziz Bran MD [Primary Care Provider] - - Critical Care Note This patient required my direct & personal management of CC.: No Attestation - Physician/ JACLYN Attestation The physician spent face to face time with patient:: Yes Advanced Practice Provider documentation review:: Supervising physician onsite and consulted in the evaluation and care of this patient. The physician did have a face to face encounter with the patient. This chart was documented by the indicated scribe, (Salma Osorio Scribe) and accurately reflects the services I performed and decisions made by me, Ching Schultz MD, as attested by the provider's signature.
== END 2018-11-24 18:50 | disposition home or self-care (01) | DRG 190 ==
LOC: P.ED 09:26 → SUATTDRO 15:05 → P.MEDSURG 15:05
PROVIDERS: ATTEND Internal Medicine
CPT/HCPCS: 71010; 71020; 71045; 71046; 80048; 80053; 82805; 82948; 83036; 83735; 83880; 84484; 85025; 85027; 85610; 87070; 87205; 87275; 87276; 87804; 93005; 94640; 94761; 94799; 96374; 96375; 99285; A9270; J1650; J1815; J1885; J1940; J2405; J2920; J2930; J7050; XXXXX

== ENCOUNTER 2019-07-20 08:57 | Observation (INO) ==
[2019-07-20] MEDS ORDERED: ASPIRIN PO ONE (09:16)
[2019-07-20] MEDS ORDERED: DUONEB (A & A) INH ONE (09:25)
--- NOTE | 2019-07-20 09:27 | PROVIDER DOCUMENTATION ---
HPI-General Adult - General Chief Complaint: Shortness of Breath Stated Complaint: COPD / SOB / CHEST SORE Time Seen by Provider: 07/20/19 09:21 Source: patient Allergies/Adverse Reactions: Patient Allergies Allergy/AdvReac Type Severity Reaction Status Date / Time levofloxacin [From Levaquin] Allergy Intermediate RASH Verified 07/20/19 09:38 ceftriaxone sodium * Allergy Mild RASH Verified 07/20/19 09:38 [From Rocephin] Home Medications: Home Medication List Medication Instructions Recorded Confirmed Last Taken Type Aspirin 81 mg PO QAM #0 chewtab 06/03/15 07/20/19 07/19/19 Rx Metformin [Glucophage] 1,000 mg PO BID CC #60 tablet 06/03/15 07/20/19 07/19/19 Rx Folic Acid 1 mg PO DAILY #60 tablet 02/04/17 07/20/19 07/19/19 Rx Hydrocodone/APAP 10 mg/325 mg 1 each PO TID PRN 04/29/18 07/20/19 07/19/19 History [[place]-10] Omeprazole 40 mg PO DAILY@0700 04/29/18 07/20/19 07/19/19 History Meclizine HCl [Wal-Dram 2] 1 tab PO Q8HR PRN #12 tab 05/26/18 07/20/19 07/19/19 Rx Albuterol 2.5MG/Ipratrop 0.5MG 3 ml INH RTQ4H #120 neb 11/24/18 07/20/19 07/19/19 Rx [Duoneb (A & A)] Liraglutide [Victoza] 1.8 mg SUBQ DAILY #30 pen.injctr 11/24/18 07/20/19 07/19/19 Rx Prednisone 20 mg PO DAILY #5 tab 11/24/18 07/20/19 07/19/19 Rx Ascorbate Calcium [Vitamin C] 500 mg PO BID #60 tab 05/18/19 07/20/19 07/19/19 Rx Ferrous Sulfate 325 mg PO BID #60 tab 05/18/19 07/20/19 07/19/19 Rx Gabapentin [Neurontin] 100 mg PO TID #21 cap 05/18/19 07/20/19 07/19/19 Rx - History of Present Illness -Gen Adult Nature of Presenting Problems: Pt. is 48 yof that presents with c/o SOB and CP that began yesterday. Pt. reports a Hx of COPD and CHF. Pt. has taken some Neb treatments at home and h asn't gotten any better. Location of Pain/Injury: reports: chest. denies: head, face, mouth, neck, upper extremity, hand(s), abdomen, back, pelvis, genitalia, lower extremity, feet, upper body, lower body, generalized, other Pain Radiation: reports: no radiation. denies: arm(s), back, buttocks, chest, epigastric, feet, groin, jaw, flank (L), legs (lower), LLQ, LUQ, neck, periumbilical, flank (R), RLQ, RUQ, shoulder(s), scapula, scrotal, sternal notch, suprapubic, legs (upper), urethral, vaginal, other Quality of Pain: reports: none. denies: aching, pressure, tightness Severity: reports: moderate. denies: mild, severe Onset/Duration: reports: abrupt, last night Timing: reports: still present. denies: improving, constant, getting worse Context/Activities at Onset: reports: none. denies: light activity, moderate activity, vigorous activity, recent emotional stress, recent physical stress, recent trauma history, possible bad food, cold exposure, eating, out of country travel, rest, sleep, sexual activity, other Modifying Factors: improves with: nothing Associated Symptoms: reports: shortness of breath. denies: denies symptoms, anxiety, arm pain, back/neck pain, chest pain, constipation, cough, diaphoresis, diarrhea, dizziness, EENT symptoms, fatigue, fever/chills, genitourinary problems, headaches, heartburn, joint pain, loss of appetite, malaise, muscle aches, sinus congestion/drainage, nausea, rash, seizure, sensory/motor loss, pain with inspiration, swelling/mass in abdomen, syncope, vomiting, weakness, trouble walking, other Similar Symptoms Previously?: Yes Recently seen or treated by another doctor?: No Review of Systems - Adult - REVIEW OF SYSTEMS - ADULT Constitutional: reports: no symptoms reported Eyes: reports: no symptoms reported Ears, Nose, Mouth & Throat: reports: no symptoms reported Cardiovascular: reports: no symptoms reported Respiratory: reports: see HPI, shortness of breath, wheezing. denies: dyspnea on exertion, pleurisy Gastrointestinal: reports: no symptoms reported Genitourinary: reports: no symptoms reported Musculoskeletal: reports: no symptoms reported Integumentary: reports: no symptoms reported Neurological: reports: no symptoms reported Psychiatric: reports: no symptoms reported Past History - Adult - PAST MEDICAL HISTORY-ADULT Review of Records: reports: Old Records Reviewed, Nursing Assessment Review, Medications Reviewed, Social history reviewed & non-contributory. Major Childhood Illnesses: reports: denies history Cardiovascular: reports: CHF, HTN, hyperlipidemia Respiratory: reports: asthma, COPD, sleep apnea Gastrointestinal: reports: GERD Obstetrical/Gynecological: reports: denies history Genitourinary: reports: denies history Musculoskeletal: reports: arthritis, chronic pain Neurological: reports: CVA Psychiatric: reports: depression Endocrine/Immune: reports: anemia, Diabetes Other Conditions: reports: other (morbid obesity) - PRIOR SURGERIES/PROCEDURES Surgical/Procedure History: reports: - IMMUNIZATION STATUS Childhood Immunizations: See Nurse Assessment Flu Vaccine: See Nurse Assessment - FAMILY HISTORY Family History: reviewed, not pertinent - SOCIAL HISTORY Smoking: denies Physical Exam-General - PHYSICAL EXAM-ADULT Initial Vital Signs Reviewed: Yes - CONSTITUTIONAL General Appearance: alert, moderate distress, obese, anxious. negative: slow to respond, obtunded, combative - EYES Eyes: PERRL/EOMI, pink conjunctivae - HEAD, EARS, NOSE, MOUTH & THROAT HENMT: normocephalic/atraumatic, moist mucous membranes - NECK Neck: non-tender, full range of motion, supple, normal inspection - RESPIRATORY Respiratory: decreased breath sounds, wheezing, increased rate. negative: crackles, rales, rhonchi, stridor, splinting, decreased rate - CARDIOVASCULAR Cardiovascular: normal peripheral pulses, regular rate, rhythm, no edema - GASTROINTESTINAL (ABDOMEN) Abdominal Exam: normal bowel sounds, non tender, soft - LYMPHATIC Lymphatic: no adenopathy - MUSCULOSKELETAL Back Exam: normal inspection, no CVA tenderness, no vertebral tenderness Extremity: normal range of motion, non-tender, normal gait, normal inspection Peripheral Pulses: radial (R): 2+, radial (L): 2+ - SKIN Integumentary: normal color, normal turgor, warm/dry - NEUROLOGIC Neurologic: grossly normal, no motor/sensory deficits - PSYCHIATRIC Psych/Mental Status: normal mood/affect, normal thought content, normal thought process, oriented x 3. negative: anxious, paranoid, tearful Progress - PLAN OF CARE/RESULTS Progress/Plan/Lab Results: Vital Signs - 8 hr 07/20/19 09:04 Temperature 97.9 F Pulse Rate 79 Respiratory Rate 22 Blood Pressure 148/88 O2 Sat by Pulse Oximetry 99 Orders Category Date Time Status Cardiac Monitoring DIRECTED Care 07/20/19 09:17 Active Oxygen Therapy- ED Nursing DIRECTED Care 07/20/19 09:17 Active Saline Loc NOW Care 07/20/19 09:17 Active CHEST-PORTABLE [RAD] Stat Exams 07/20/19 09:24 Ordered CBC WITH ELECTRONIC DIFF [HEME] Stat Lab 07/20/19 09:17 Uncollected CK PROFILE [SP CHEM] Stat Lab 07/20/19 09:17 Uncollected COMPREHENSIVE METABOLIC PANEL [CHEM] Stat Lab 07/20/19 09:17 Uncollected PRO B-NATRIURETIC PEPTIDE Stat Lab 07/20/19 09:17 Uncollected PROTIME WITH INR [COAG] Stat Lab 07/20/19 09:17 Uncollected PTT [COAG] Stat Lab 07/20/19 09:17 Uncollected TROPONIN T Stat Lab 07/20/19 09:17 Uncollected Aspirin Med 07/20/19 09:16 Discontinued 325 mg PO NOW ONE CP/SOB/Palp >45 yrs of Age Stat Oth 07/20/19 09:16 Ordered EKG [EKG] Stat Ther 07/20/19 09:17 Ordered Laboratory Tests 07/20/19 07/20/19 07/20/19 09:35 09:35 09:35 WBC 10.03 RBC 4.20 Hgb 8.8 L Hct 31.7 L MCV 75.5 L MCH 21.0 L MCHC 27.8 L RDW Std Deviation 20.4 H Plt Count 329 MPV 9.9 Immature Gran % (Auto) 0.3 Neut % (Auto) 70.8 Lymph % (Auto) 22.2 [place] % (Auto) 5.2 Eos % (Auto) 1.2 Baso % (Auto) 0.3 Immature Gran # (Auto) 0.03 Neut # (Auto) 7.10 H Lymph # (Auto) 2.23 [place] # (Auto) 0.52 Eos # (Auto) 0.12 Baso # (Auto) 0.03 PT INR PTT (Actin FS) Specimen Type Sample Site pH pCO2 pO2 HCO3 Base Excess Oxyhemoglobin ABG O2 Sat (Calculated) ABG O2 Saturation ABG Carboxyhemoglobin ABG Methemoglobin Cam Test A-a O2 Difference Total Hemoglobin Lactate Blood Gas Modality FiO2 % Sodium 137 Potassium 4.2 Chloride 99 Carbon Dioxide 26 Anion Gap 13 BUN 11 Creatinine 0.6 Estimated GFR/1.73 m2 > 60 BUN/Creatinine Ratio 18 Glucose 333 H Calculated Osmolality 286 Calcium 8.7 L Total Bilirubin < 0.15 L AST 8 L ALT 6 L Alkaline Phosphatase 87 Creatine Kinase 52 Troponin T Dvu-H-Goutnjksezo Pept 27 Total Protein 6.7 Albumin 3.9 Globulin 3.0 Albumin/Globulin Ratio 1.0 07/20/19 07/20/19 07/20/19 09:35 09:35 09:40 WBC RBC Hgb Hct MCV MCH MCHC RDW Std Deviation Plt Count MPV Immature Gran % (Auto) Neut % (Auto) Lymph % (Auto) [place] % (Auto) Eos % (Auto) Baso % (Auto) Immature Gran # (Auto) Neut # (Auto) Lymph # (Auto) [place] # (Auto) Eos # (Auto) Baso # (Auto) PT 12.5 INR 0.89 PTT (Actin FS) 23.5 Specimen Type ARTERIAL Sample Site R RADIAL pH 7.40 pCO2 45 pO2 70 HCO3 27.0 H Base Excess 2.7 Oxyhemoglobin 93.8 L ABG O2 Sat (Calculated) 12.1 L ABG O2 Saturation 96.2 ABG Carboxyhemoglobin 1.70 ABG Methemoglobin 0.9 Cam Test YES A-a O2 Difference 23.0 Total Hemoglobin 9.1 L Lactate 2.10 Blood Gas Modality ROOM AIR FiO2 % 21.0 Sodium Potassium Chloride Carbon Dioxide Anion Gap BUN Creatinine Estimated GFR/1.73 m2 BUN/Creatinine Ratio Glucose Calculated Osmolality Calcium Total Bilirubin AST ALT Alkaline Phosphatase Creatine Kinase Troponin T < 0.010 Dhg-[id number]-Frobotwgdxa Pept Total Protein Albumin Globulin Albumin/Globulin Ratio Heart Score = 4 Discussed results and plan of care with patient. Patient agrees with plan of care with patient. Result Diagrams: 07/20/19 09:35 07/20/19 09:35 - EKG 1 Time of EKG reading by physician:: 09:21 EKG Read and Signed by:: Simi Landry EKG Interpretation (*Must complete 3 of following elements*): Normal Rate: 82 Rhythm: NSR [place]: normal QRS: normal KS Interval: normal ST Wave: normal - XRAY 1 XRAY Study: Chest ([facility] - [address], [address], [place] [address] [facility] - [address] [place] [address] Department of Imaging Patient: FORTINO HILL AADM Date: 07/20/19MR#: [id number] : 1970ADM Status: PRE ERAcct#: [id number] Age/Sex: 48/FRoom/Bed: Loc: P.ED Ordering Physician: Angela Levy Family Physician: Abdulaziz Bran MD Reason for Procedure: SOB Signed CHEST-PORTABLE - 07/20/2019 INDICATION: SOB COMPARISON: 05/18/2019 FINDINGS: Stable moderately low lung volumes. No obvious infiltrates. Heart size is top normal. IMPRESSION: Low lung volumes. Electronically signed by Jarred Post 07/20/2019 10:12 AM 07/20/19 1012 Interpreting Physician: Jarred Post MD Dictated Date/Time: 07/20/19 1011 cc: Angela Levy; Abdulaziz Bran MD) XRAY Interpretation: See note - CONSULTS/PCP/HOSPITALIST Notification #1 *Consult/PCP/Hospitalist*: Dr. Blackburn Time Discussed: 10:26 Reason/Comments: Admission Consult Disposition: Will see in ED, Admit Departure - Departure Date of Disposition Decision: 07/20/19 Time of Disposition Decision: 10:21 DIAGNOSIS: Morbid obesity with BMI of 70 and over, adult, COPD exacerbation Anemia Qualifiers: Anemia type: unspecified type Qualified Code(s): D64.9 - Anemia, unspecified Chest pain Qualifiers: Chest pain type: unspecified Qualified Code(s): R07.9 - Chest pain, unspecified Dyspnea Qualifiers: Dyspnea type: unspecified Qualified Code(s): R06.00 - Dyspnea, unspecified Disposition: ADMITTED INPATIENT 09 Certified Medical Emergency: Emergent Condition: Stable Referrals and Follow-Ups: Abdulaziz Bran MD [Primary Care Provider] - - Critical Care Note This patient required my direct & personal management of CC.: No Attestation - Physician/ JACLYN Attestation Patient care was provided by Advanced Practice Provider:: Yes Advanced Practice Provider:: Angela Levy Advanced Practice Provider documentation review:: The Mid-level provider documentation, treatment plan and medical decision making was reviewed by the physician who agrees with all treatment and medical decision making by the MLP. The physician spent face to face time with patient:: No Advanced Practice Provider documentation review:: Supervising physician onsite and consulted in the evaluation and care of this patient. The physician did not have a face to face encounter with the patient.
[2019-07-20 09:57] LABS: BASO# 0.03 X1000 (0.0-0.2); BASO% 0.3 % (0.0-0.8); EOS# 0.12 X1000 (0.0-0.7); EOS% 1.2 % (0.0-10.0); HEMATOCRIT 31.7 % (37.0-47.0); HEMOGLOBIN 8.8 g/dL (12.0-16.0); IMM GRAN# 0.03 X1000 (0.0-0.04); IMM GRAN% 0.3 % (0.0-0.5); LYMPH# 2.23 X1000 (1.2-3.4); LYMPH% 22.2 % (20.5-51.1); MCHC 27.8 g/dL (33-37); MCV 75.5 FL (81-99); MONO# 0.52 X1000 (0.11-0.59); MONO% 5.2 % (1.7-9.3); MPV 9.9 FL (7.4-10.4); NEUT% 70.8 % (42.2-75.2); PLT 329 X1000 (130-400); RDW 20.4 % (11.5-14.5); WBC 10.03 X1000 (4.8-10.8)
[2019-07-20 10:00] LABS: INR 0.89; PROTIME 12.5 Seconds (11.0-16.0)
[2019-07-20 10:01] LABS: PTT 23.5 Seconds (22.3-41.8)
[2019-07-20 10:01] LABS: BE 2.7 mmoll (-3.0-3.0); BLOOD TYPE ARTERIAL; METHB 0.9 % (0.0-1.5); O2(CT) 12.1 mL/dL (15.0-23.0); O2HB 93.8 % (95.0-99.0); PCO2(98.6) 45 mmHg (35-45); PO2(98.6) 70 mmHg (60-100); SAMPLE BLOOD; SAO2 96.2 % (95.0-100.0); THB 9.1 g/dL (11.5-17.4)
[2019-07-20 10:04] LABS: ALLEN TEST YES; MODALITY ROOM AIR
[2019-07-20 10:06] LABS: AGAP 13; ALBUMIN 3.9 g/dL (3.5-5.0); ALKALINE PHOSPHATASE 87 U/L (32-104); BUN 11 mg/dL (8-22); CALCIUM 8.7 mg/dL (8.8-10.2); CHLORIDE 99 mmol/L (98-107); CK PROFILE 52 U/L (24-173); COSMO 286; CREATININE 0.6 mg/dL (0.5-0.9); ESTIMATED GFR > 60; GLUCOSE 333 mg/dL (70-104); GOT 8 U/L (10-30); GPT 6 U/L (10-36); POTASSIUM 4.2 mmol/L (3.5-5.1); SODIUM 137 mmol/L (136-145); TCO2 26 mmol/L (25-35); TOTAL BILIRUBIN < 0.15 mg/dL (0.20-1.00); TOTAL PROTEIN 6.7 g/dL (6.3-8.3)
--- NOTE | 2019-07-20 10:14 | Diag Imaging Result Doc PS360 ---
CHEST-PORTABLE - 07/20/2019 INDICATION: SOB COMPARISON: 05/18/2019 FINDINGS: Stable moderately low lung volumes. No obvious infiltrates. Heart size is top normal. IMPRESSION: Low lung volumes. Electronically signed by Jarred Post 07/20/2019 10:12 AM
[2019-07-20] MEDS ORDERED: NITROGLYCERIN TOP ONE (10:21)
[2019-07-20] MEDS ORDERED: ANTIVERT PO PRN (11:07)
[2019-07-20] MEDS ORDERED: INSULIN PEN NEEDLES MISC PRN (11:21)
[2019-07-20] MEDS: DUONEB (A & A) INH SCH ×4 (11:35→23:49)
[2019-07-20] MEDS: NORCO-10 PO PRN ×2 (11:49→17:07)
--- NOTE | 2019-07-20 12:48 | EKG Report ---
Test Performed on : 07/20/2019 09:19:20 AM Test Reason : SOB Blood Pressure : / mmHG Vent. Rate : 082 BPM Atrial Rate : 082 BPM P-R Int : 128 ms QRS Dur : 082 ms QT Int : 394 ms P-R-T Axes : 031 007 025 degrees QTc Int : 460 ms Normal sinus rhythm. Normal ECG When compared with ECG of 18-MAY-2019 08:16, (Unconfirmed) Nonspecific T wave abnormality has replaced inverted T waves in Anterior leads Unconfirmed Result
[2019-07-20] MEDS ORDERED: NEURONTIN PO SCH (13:00)
--- NOTE | 2019-07-20 14:00 | HISTORY AND PHYSICAL ---
PRIMARY CARE PHYSICIAN: Dr. Bran. CHIEF COMPLAINT: Shortness of breath and chest pain that began yesterday and progressively worsened. HISTORY OF PRESENTING ILLNESS: This is a 48-year-old, morbidly obese, female, who is 4 feet 3 inches tall and 308 pounds. She presented to [facility] ER with complaints of shortness of breath and chest pain that started yesterday and progressively worsened. States that the pain is midsternum and epigastric area and does not radiate. She feels a tightness in the midsternal epigastric area. She has a history of congestive heart failure, COPD, and morbid obesity. Her workup today was fairly benign. Her proBNP was 27. Her first set of cardiac enzymes was negative. She did have an elevation in her glucose at 333. Chest x-ray showed low lung volumes. She was saturating 97 to 98% on room air. She states her last known stress test was in 2012 and was read as normal at that time, so she will be admitted for further evaluation and treatment. PAST MEDICAL HISTORY: Diabetes type 2, chronic anemia, COPD, hypertension, morbid obesity, dyslipidemia, congestive heart failure with an ejection fraction of 60% on 04/29/2018, CVA, and depression. PAST SURGICAL HISTORY: . FAMILY HISTORY: Reviewed and noncontributory. SOCIAL HISTORY: She lives with family. Denies any tobacco, alcohol or illicit drug use. ALLERGIES: Levofloxacin and ceftriaxone. HOME MEDICATIONS: She takes Lasix 40 mg p.o. daily, K-Erica-Con 8 mEq p.o. daily, DuoNeb q.4 hours, vitamin C 500 mg p.o. b.i.d., aspirin 81 mg p.o. q.a.m., ferrous sulfate 325 mg p.o. b.i.d., folic acid 1 mg p.o. daily, gabapentin 100 mg p.o. t.i.d., [place] 10 1 p.o. t.i.d. p.r.n., Victoza 1.8 mg subcutaneous daily, meclizine 25 mg p.o. q.8 hours p.r.n., Glucophage 1000 mg p.o. b.i.d., omeprazole 40 mg p.o. daily, and prednisone 20 mg p.o. daily. LABORATORY DATA: Laboratory data showed a white blood cell count of 10.03, hemoglobin 8.8, hematocrit 31.7, platelets 329,000. PT and INR of 12.5 and 0.89. ABG with a pH of 7.40, pCO2 45, pO2 70, bicarb 27, and this was on room air. Sodium 137, potassium 4.2, chloride 99, CO2 26, BUN of 11, creatinine 0.6, glucose of 333. Cardiac enzyme was negative. ProBNP of 27. Chest x-ray showed low lung volumes. REVIEW OF SYSTEMS: She denied any fever, chills, blurred vision, dizziness. She was positive for chest pain that was nonradiating, described as a tightness into the substernal epigastric area, and was positive for shortness of breath. Denied any abdominal pain, constipation, diarrhea, burning or hurting with urination. PHYSICAL EXAMINATION: VITALS: On arrival she had a temperature of 97.9 degrees, pulse 79, respirations 22, blood pressure 148/88. GENERAL: This is a 48-year-old female who is sitting up in the bed but answers questions appropriately. HEENT: Normocephalic, atraumatic. Normal ENT inspection. Oropharynx and nares are clear. Eyes, pupils are equal, round, reactive to light and accommodation. Extraocular movements are intact. NECK: Normal inspection. Normal range of motion. LUNGS: Clear to auscultation bilaterally with equal lung expansion and chest wall movement. HEART: Regular rate and rhythm. No murmurs, rubs, or gallops. ABDOMEN: Soft, nontender, nondistended. Bowel sounds are present x4 quadrants. MUSCULOSKELETAL: Moves extremities well, with 5/5 strength x4 extremities. NEUROLOGICAL: The cranial nerves 2-12 are grossly intact. ASSESSMENT: 1. Chest pain. 2. Dyspnea secondary to what appears to be some anxiety. 3. Morbid obesity. 4. Diabetes type 2, uncontrolled, with hyperglycemia. PLAN: She will be admitted to the medical unit, placed on telemetry, O2 per protocol. We will do serial cardiac enzymes. We will check an echocardiogram. She will have a healthy heart diet today, be n.p.o. after midnight for a myocardial perfusion scan in the a.m. Continue her home medications as previously identified, and further orders after seen by attending. Dictated by CORY Love for Lionel Blackburn MD cc: CORY Love MD Dr. Awoniyi
[2019-07-20 14:16] LABS: HEMOGLOBIN A1C 8.4 % (4.8-6.0)
[2019-07-20] MEDS: GLUCOPHAGE PO SCH (16:59)
[2019-07-20] MEDS: NEURONTIN PO SCH ×2 (16:59→21:52)
[2019-07-20] MEDS: HUMALOG (PARKWAY) SUBQ SCH ×2 (16:59→21:51)
--- NOTE | 2019-07-20 18:53 | PROGRESS NOTE ---
DATE: 07/20/2019 SUBJECTIVE: Patient has no major complaints. OBJECTIVE: Blood pressure is stable at 126/62, heart rate of 88, respiratory rate of 12, temperature 98.6 degrees, 96% on room air.Cardiovascular: Regular rate and rhythm. Pulmonary: Bilateral breath sounds. Clear to auscultation. Gastrointestinal: Soft, nontender, nondistended. Bowel sounds are positive. LABORATORY DATA: White count 10, hemoglobin and hematocrit 8 and 31, platelets 329,000. ASSESSMENT/PLAN: In any case, we will admit her for chest pain, rule out stress test with echo. cc: Lionel Blackburn MD
[2019-07-20] MEDS: VITAMIN C PO SCH (21:51)
[2019-07-20] MEDS: FERROUS SULFATE PO SCH (21:52)
[2019-07-21] MEDS: NORCO-10 PO PRN ×2 (04:24→13:15)
[2019-07-21] MEDS: DUONEB (A & A) INH SCH ×5 (04:27→15:29)
--- NOTE | 2019-07-21 06:25 | EKG Report ---
Test Performed on : 07/21/2019 06:20:36 AM Test Reason : CP Blood Pressure : / mmHG Vent. Rate : 081 BPM Atrial Rate : 081 BPM P-R Int : 132 ms QRS Dur : 084 ms QT Int : 384 ms P-R-T Axes : 055 042 060 degrees QTc Int : 446 ms Normal sinus rhythm. Normal ECG When compared with ECG of 20-JUL-2019 09:19, (Unconfirmed) Nonspecific T wave abnormality no longer evident in Anterior leads Confirmed by Arun Hernandez MD ([id number]) on 07/30/2019 11:47:24 AM
[2019-07-21] MEDS: HUMALOG (PARKWAY) SUBQ SCH ×3 (06:36→16:46)
[2019-07-21] MEDS ORDERED: PRILOSEC PO SCH (07:00)
[2019-07-21 07:21] LABS: BASO# 0.02 X1000 (0.0-0.2); BASO% 0.2 % (0.0-0.8); EOS# 0.14 X1000 (0.0-0.7); EOS% 1.5 % (0.0-10.0); HEMATOCRIT 30.8 % (37.0-47.0); HEMOGLOBIN 8.4 g/dL (12.0-16.0); IMM GRAN# 0.03 X1000 (0.0-0.04); IMM GRAN% 0.3 % (0.0-0.5); LYMPH# 2.59 X1000 (1.2-3.4); LYMPH% 27.1 % (20.5-51.1); MCH 20.8 PG (27-31); MCHC 27.3 g/dL (33-37); MCV 76.4 FL (81-99); MONO# 0.55 X1000 (0.11-0.59); MONO% 5.8 % (1.7-9.3); MPV 10.4 FL (7.4-10.4); NEUT# 6.23 X1000 (1.4-6.5); NEUT% 65.1 % (42.2-75.2); PLT 273 X1000 (130-400); RBC 4.03 XMIL (4.2-5.4); RDW 20.4 % (11.5-14.5); WBC 9.56 X1000 (4.8-10.8)
[2019-07-21 07:37] LABS: AGAP 10; BUN 14 mg/dL (8-22); CALCIUM 8.5 mg/dL (8.8-10.2); CHLORIDE 97 mmol/L (98-107); COSMO 279; CREATININE 0.6 mg/dL (0.5-0.9); ESTIMATED GFR > 60; GLUCOSE 289 mg/dL (70-104); POTASSIUM 4.6 mmol/L (3.5-5.1); SODIUM 134 mmol/L (136-145); TCO2 27 mmol/L (25-35)
[2019-07-21] MEDS: VITAMIN C PO SCH (08:59)
[2019-07-21] MEDS: FERROUS SULFATE PO SCH (09:00)
[2019-07-21] MEDS ORDERED: ASPIRIN PO SCH (09:00)
[2019-07-21] MEDS ORDERED: KLOR-CON PO SCH (09:00)
[2019-07-21] MEDS ORDERED: VICTOZA SUBQ SCH (09:00)
[2019-07-21] MEDS ORDERED: PREDNISONE PO SCH (09:00)
[2019-07-21] MEDS ORDERED: LASIX PO SCH (09:00)
[2019-07-21] MEDS: NEURONTIN PO SCH ×2 (09:00→16:55)
[2019-07-21] MEDS ORDERED: FOLIC ACID PO SCH (09:00)
[2019-07-21] MEDS: GLUCOPHAGE PO SCH ×2 (09:00→16:55)
--- NOTE | 2019-07-21 12:03 | GRADED EXERCISE REPORT ---
DATE: 07/21/2019 PROCEDURE PERFORMED: GXT Lexiscan EKG interpretation test administration. INDICATION: Chest pain. ORDERED BY: CORY Love. SUMMARY: Baseline EKG is nonspecific ST changes. Heart rate 78, blood pressure 135/83. She underwent Lexiscan infusion, 0.4 mg per protocol. She did develop some chest pressure and tightness, nausea and headache, but there were no significant ST changes noted during her course, completely unchanged EKG. Peak heart rate 104, peak blood pressure 148/78. The test was felt to be clinically positive and electrically negative. Myocardial perfusion reported separately. cc: Lionel Blackburn MD
[2019-07-21] MEDS ORDERED: LEXISCAN ONE (13:58)
[2019-07-21 14:35] VITALS: BP 119/43
--- NOTE | 2019-07-21 15:24 | Diag Imaging Result Document ---
PROCEDURE NAME: MYOCARDIAL PERF SCAN, STR/REST - 07/21/2019 PROCEDURE: Lexiscan sestamibi interpretation. SUMMARY: The patient was administered 15.6 mCi of technetium-99m sestamibi, after which resting cardiac images were obtained. The patient was subsequently administered Lexiscan 0.4 mg intravenously, after which the heart rate went up from 78 beats per minute to 104 beats per minute, and the blood pressure went up from 135/83 to 148/74. Following the administration of Lexiscan, the patient was administered 46.1 mCi of technetium 99-m sestamibi after which gated stress cardiac images were obtained. Results of Lexiscan ECG will be reported separately. SPECT images were reconstructed in the short, horizontal long, and vertical long axis. Review of these images demonstrated technically difficult images due to diffuse inhomogeneities likely related to patient's morbid obesity. There is no convincing scintigraphic evidence of inducible myocardial ischemia. Calculated left ventricular ejection fraction 81% with symmetrical wall motion. CONCLUSIONS: 1. Adequate response to Lexiscan. 2. Result of Stress ECG reported separately. 3. Lexiscan sestamibi images technically difficult due to diffuse inhomogeneities likely related to patient's morbid obesity. No convincing scintigraphic evidence of ischemia demonstrated. Normal left ventricular systolic function demonstrated. Clinical correlation recommended. cc: MD Valentine Silverio CRNP
--- NOTE | 2019-07-22 19:20 | DISCHARGE SUMMARY ---
ADMISSION DATE: 07/20/2019 DISCHARGE DATE: 07/21/2019 The patient, on day of discharge, is looking okay. She is complaining of shortness of breath, but that has been pretty much a constant complaint. Her myocardial perfusion scan is negative. She did not have any significant ST changes and these were described. She had some diffuse inhomogeneities related to the morbid obesity, but there was no evidence of inducible myocardial ischemia and EF was 81%. Unfortunately, I think this patient's shortness of breath is because she is 326 pounds. She is 4 feet 3 inches, if that is accurate, giving her a BMI of 88. I would strongly suggest to Dr. Fuentes that besides normal blood pressure control, she would be advised on weight loss and candidacy for possible bariatric surgery or gastric bypass. It is just unacceptable that she comes in short of breath and we are concerned about her heart, when obviously her morbid obesity is what is causing her dyspnea. We really need to focus on weight loss because in this patient she is truly morbidly obese, and I think her Primary Care needs to focus on trying to get her to evaluated for bariatric surgery. This is a [id number] encounter note with Valentine Philip. cc: Lionel Blackburn MD
== END 2019-07-21 18:00 | disposition home or self-care (01) ==
LOC: P.MEDSURG 08:57 → P.ED 08:57 → P.MEDSURG 22:33
PROVIDERS: ADMIT Internal Medicine

== ENCOUNTER 2019-10-04 01:46 | Inpatient (IN) ==
[2019-10-04] MEDS ORDERED: MORPHINE IV ONE ×2 (02:09→09:08)
[2019-10-04] MEDS ORDERED: ZOFRAN IV ONE (02:09)
[2019-10-04 02:12] LABS: URINE SOURCE CLEAN CATCH
[2019-10-04 02:15] LABS: BILIRUBIN URINE NEGATIVE (NEGATIVE); BLOOD URINE SMALL (NEGATIVE); COLOR YELLOW; GLUCOSE URINE 1000 mg/dL (NEGATIVE); KETONE URINE TRACE mg/dL (NEGATIVE); LEUKOCYTES URINE LARGE (NEGATIVE); NITRITE URINE NEGATIVE (NEGATIVE); PROTEIN URINE 70 mg/dL (NEGATIVE); SP GRAVITY URINE 1.037; TURBIDITY URINE TURBID (CLEAR); UROBILINOGEN URINE 2 mg/dL (NORMAL)
[2019-10-04 02:26] LABS: URINE RBC <10 /HPF (<10); URINE WBC TNTC /HPF (<10)
[2019-10-04 02:30] LABS: UR EPITHELIAL CELLS >10 /HPF (<10); URINE BACTERIA 4+ /HPF
--- NOTE | 2019-10-04 02:46 | PROVIDER DOCUMENTATION ---
HPI-General Adult - General Chief Complaint: Flank Pain Stated Complaint: FLANK PAIN Time Seen by Provider: 10/04/19 02:00 Source: patient Allergies/Adverse Reactions: Patient Allergies Allergy/AdvReac Type Severity Reaction Status Date / Time levofloxacin [From Levaquin] Allergy Intermediate RASH Verified 09/28/19 16:57 ceftriaxone sodium * Allergy Mild RASH Verified 09/28/19 16:57 [From Rocephin] Home Medications: Home Medication List Medication Instructions Recorded Confirmed Last Taken Type Aspirin 81 mg PO QAM #0 chewtab 06/03/15 10/04/19 07/19/19 Rx Metformin [Glucophage] 1,000 mg PO BID CC #60 tablet 06/03/15 10/04/19 07/19/19 Rx Folic Acid 1 mg PO DAILY #60 tablet 02/04/17 10/04/19 07/19/19 Rx Omeprazole 40 mg PO DAILY@0700 04/29/18 10/04/19 07/19/19 History Albuterol 2.5MG/Ipratrop 0.5MG 3 ml INH RTQ4H #120 neb 11/24/18 10/04/19 07/19/19 Rx [Duoneb (A & A)] Liraglutide [Victoza] 1.8 mg SUBQ DAILY #30 pen.injctr 11/24/18 10/04/19 07/19/19 Rx Ascorbate Calcium [Vitamin C] 500 mg PO BID #60 tab 05/18/19 10/04/19 07/19/19 Rx Furosemide [Lasix] 40 mg PO DAILY 07/20/19 10/04/19 Unknown History Potassium Chloride [Klor-Con 8] 8 meq PO DAILY 07/20/19 10/04/19 Unknown History Sulfamethoxazole/Trimethoprim 1 ea PO BID #10 tab 09/28/19 10/04/19 Unknown Rx [Bactrim Ds Tablet] Colchicine [Mitigare] 0.6 mg PO BID 10/04/19 10/04/19 Unknown History Ferrous Sulfate [Ferosul] 325 mg PO DAILY 10/04/19 10/04/19 Unknown History Hydrocodone/Acetaminophen 1 ea PO TID PRN 10/04/19 10/04/19 Unknown History [Hydrocodon-Acetaminophn 10-325] Meclizine HCl [[place] 2] 25 mg PO Q8HR PRN 10/04/19 10/04/19 Unknown History Meloxicam 15 mg PO DAILY PRN 10/04/19 10/04/19 Unknown History Zolpidem [Ambien] 5 mg PO QHS PRN 10/04/19 10/04/19 Unknown History - History of Present Illness -Gen Adult Nature of Presenting Problems: Severe R flank pain radiating to abdomen that has been present x approximately one week but became severe tonight. She was placed on Bactrim for a UTI 09/28 at [facility]. The symptoms tonight feel similar but are much more severe. She has nausea, but no vomiting. No diarrhea. Review of Systems - Adult - REVIEW OF SYSTEMS - ADULT Constitutional: denies: chills, fever Eyes: reports: no symptoms reported Ears, Nose, Mouth & Throat: reports: no symptoms reported Cardiovascular: reports: no symptoms reported Respiratory: reports: no symptoms reported Gastrointestinal: reports: see HPI Genitourinary: reports: see HPI Musculoskeletal: reports: no symptoms reported Integumentary: reports: no symptoms reported Neurological: reports: no symptoms reported Psychiatric: reports: no symptoms reported Endocrine: reports: no symptoms reported Hematologic/Lymphatic: reports: no symptoms reported Allergic/Immunologic: reports: no symptoms reported Past History - Adult - PAST MEDICAL HISTORY-ADULT Review of Records: reports: Old Records Reviewed, Nursing Assessment Review, Medications Reviewed Major Childhood Illnesses: reports: denies history Cardiovascular: reports: CHF, HTN, hyperlipidemia Respiratory: reports: asthma, COPD, sleep apnea Gastrointestinal: reports: GERD Obstetrical/Gynecological: reports: denies history Genitourinary: reports: denies history Musculoskeletal: reports: arthritis, chronic pain Neurological: reports: CVA Psychiatric: reports: depression Endocrine/Immune: reports: anemia, Diabetes Other Conditions: reports: other (morbid obesity) - PRIOR SURGERIES/PROCEDURES Surgical/Procedure History: reports: - IMMUNIZATION STATUS Childhood Immunizations: See Nurse Assessment Flu Vaccine: See Nurse Assessment - FAMILY HISTORY Family History: reviewed, not pertinent Physical Exam-General - CONSTITUTIONAL General Appearance: alert, mild distress (due to pain) - EYES Eyes: PERRL/EOMI, pink conjunctivae - HEAD, EARS, NOSE, MOUTH & THROAT HENMT: normocephalic/atraumatic, moist mucous membranes, normal ENT inspection - NECK Neck: non-tender, full range of motion, supple - RESPIRATORY Respiratory: chest non-tender, lungs clear. negative: stridor, wheezing - CARDIOVASCULAR Cardiovascular: normal peripheral pulses, regular rate, rhythm, no JVD - GASTROINTESTINAL (ABDOMEN) Abdominal Exam: normal bowel sounds, non tender, other (morbidly obese.). negative: guarding, rebound - LYMPHATIC Lymphatic: no adenopathy - MUSCULOSKELETAL Back Exam: CVA tenderness (R sided.) Extremity: normal range of motion, non-tender, normal inspection, normal capillary refill - SKIN Integumentary: normal color, normal turgor, warm/dry - NEUROLOGIC Neurologic: negative: facial droop, focal weakness - PSYCHIATRIC Psych/Mental Status: normal mood/affect Progress - PLAN OF CARE/RESULTS Progress/Plan/Lab Results: Vital Signs - 8 hr 10/04/19 01:53 Temperature 97.6 F Pulse Rate 84 Respiratory Rate 20 Blood Pressure 135/067 O2 Sat by Pulse Oximetry 96 Laboratory Results - last 24 hr 10/04/19 02:05 Urine Source CLEAN CATCH Urine Color YELLOW Urine Turbidity TURBID Urine pH 6.0 Ur Specific [place] 1.037 Urine Protein 70 A Ur Glucose (Stick) 1000 A Ur Ketones (Stick) TRACE A Urine Blood SMALL A Urine Nitrite NEGATIVE Urine Bilirubin NEGATIVE Urobilinogen Dipstick 2 A Urine Leukocytes LARGE A Urine WBC (Auto) TNTC A Urine RBC (Auto) <10 U Epithel Cells (Auto) >10 A Urine Bacteria (Auto) 4+ Orders Category Date Time Status CT RENAL STONE SEARCH [CT] Stat Exams 10/04/19 02:10 Ordered CBC WITH ELECTRONIC DIFF [HEME] Stat Lab 10/04/19 02:38 Ordered COMPREHENSIVE METABOLIC PANEL [CHEM] Stat Lab 10/04/19 02:38 Ordered HCG [ TEST-SERUM] [PREG] Stat Lab 10/04/19 02:08 Ordered LIPASE [CHEM] Stat Lab 10/04/19 02:38 Ordered UA [URINALYSIS W/POSS RFLX CULT] [URINALYSIS] Stat Lab 10/04/19 02:05 Completed URINE CULTURE [RM] Routine Lab 10/04/19 02:31 Ordered Morphine Med 10/04/19 02:09 Discontinued 4 mg IV NOW ONE Ondansetron [Zofran] Med 10/04/19 02:09 Discontinued 4 mg IV NOW ONE Clinically stable under my care. Considerations include but not limited to: pyelonephritis, ureteral stone, pancreatitis, diverticulitis, colitis, cholecystitis. Her urine is reflective of ongoing UTI. She is allergic to cephalosporins and levaquin. She has failed outpt mgmnt. with Bactrim. Considering this and her multiple comorbidities she was given IV Aztreonam and admitted to the hospitalist. ABDELRAHMAN Sahu. GIven IV fluids and insulin. Result Diagrams: 10/04/19 02:37 10/04/19 02:37 Departure - Departure Date of Disposition Decision: 10/04/19 Time of Disposition Decision: 05:00 DIAGNOSIS: Pyelonephritis Disposition: ADMITTED INPATIENT 09 Certified Medical Emergency: Emergent Condition: Fair - Critical Care Note This patient required my direct & personal management of CC.: No Attestation - Physician/ JACLYN Attestation The physician spent face to face time with patient:: Yes Advanced Practice Provider documentation review:: Supervising physician onsite and consulted in the evaluation and care of this patient. The physician did have a face to face encounter with the patient.
[2019-10-04 02:48] LABS: BASO# 0.03 X1000 (0.0-0.2); BASO% 0.2 % (0.0-0.8); EOS# 0.17 X1000 (0.0-0.7); EOS% 1.3 % (0.0-10.0); HEMATOCRIT 40.4 % (37.0-47.0); HEMOGLOBIN 11.5 g/dL (12.0-16.0); IMM GRAN# 0.07 X1000 (0.0-0.04); IMM GRAN% 0.5 % (0.0-0.5); LYMPH# 3.14 X1000 (1.2-3.4); LYMPH% 23.1 % (20.5-51.1); MCH 21.9 PG (27-31); MCHC 28.5 g/dL (33-37); MCV 76.8 FL (81-99); MONO# 0.65 X1000 (0.11-0.59); MONO% 4.8 % (1.7-9.3); MPV 11.2 FL (7.4-10.4); NEUT# 9.53 X1000 (1.4-6.5); NEUT% 70.1 % (42.2-75.2); PLT 372 X1000 (130-400); RBC 5.26 XMIL (4.2-5.4); RDW 16.9 % (11.5-14.5); WBC 13.59 X1000 (4.8-10.8)
[2019-10-04 03:02] LABS: AGAP 16; ALBUMIN 4.2 g/dL (3.5-5.0); ALKALINE PHOSPHATASE 95 U/L (32-104); BUN 18 mg/dL (8-22); CALCIUM 9.9 mg/dL (8.8-10.2); CHLORIDE 97 mmol/L (98-107); COSMO 281; CREATININE 0.7 mg/dL (0.5-0.9); ESTIMATED GFR > 60; GLUCOSE 320 mg/dL (70-104); GOT 28 U/L (10-30); GPT 19 U/L (10-36); LIPASE 32 U/L (13-60); POTASSIUM 4.4 mmol/L (3.5-5.1); SODIUM 133 mmol/L (136-145); TCO2 20 mmol/L (25-35); TOTAL BILIRUBIN < 0.15 mg/dL (0.20-1.00); TOTAL PROTEIN 7.5 g/dL (6.3-8.3)
[2019-10-04] MEDS ORDERED: AZACTAM 2 GM in NS 100 ML IV ONE (05:02)
[2019-10-04] MEDS ORDERED: TYLENOL PO PRN ×2 (05:05→07:21)
[2019-10-04] MEDS ORDERED: ZOFRAN IV PRN (05:05)
[2019-10-04] MEDS ORDERED: NS 1,000 ML IV ONE ×2 (05:05→06:22)
[2019-10-04] MEDS: AZACTAM IV SCH ×2 (06:05→06:36)
[2019-10-04] MEDS: NS IV SCH ×2 (06:05→06:36)
[2019-10-04] MEDS ORDERED: HUMULIN R IV ONE (06:22)
[2019-10-04] MEDS ORDERED: HUMULIN R (PARKWAY) ONE (06:27)
[2019-10-04] MEDS ORDERED: RELISTOR SUBQ ONE (06:27)
[2019-10-04] MEDS ORDERED: NS 1,000 ML ONE (06:27)
[2019-10-04] MEDS ORDERED: RELISTOR ONE (06:28)
[2019-10-04] MEDS: ZOSYN 3.375 GM in NS 50 ML IV SCH ×3 (07:54→20:02)
--- NOTE | 2019-10-04 08:09 | Diag Imaging Result Doc PS360 ---
EXAM: CT RENAL STONE SEARCH INDICATION: severe R flank pain. TECHNIQUE: This exam was performed using automated exposure control, adjustment of mA or kV according to patient size, and/or use of iterative reconstruction technique. COMPARISON: 08/21/2016 FINDINGS: There is moderate diffuse hepatic steatosis. The liver is mildly prominent measuring up to 19 cm in craniocaudal length. The gallbladder, spleen, pancreas, and adrenal glands are unremarkable. No renal or ureteral stones are identified and there is no hydronephrosis. The kidneys are unremarkable, otherwise. The urinary bladder appears normal. The reproductive tract is grossly unremarkable as imaged. The appendix is normal. There is mild uncomplicated sigmoid colonic diverticulosis. No bowel wall thickening or bowel obstruction is identified. The remainder of the GI tract is grossly unremarkable. No focal inflammatory changes, free abdominal gas, or free fluid is identified. There is lumbar and lower thoracic spine degenerative arthropathy including facet arthropathy at L3-4 that is causing severe central stenosis, stable. IMPRESSION: 1.Moderate hepatic steatosis. 2.Degenerative arthropathy with severe central stenosis at L3-4 that appears stable. 3.No renal or ureteral stones, evidence of acute obstructive uropathy, or other sign of acute pathology by unenhanced CT. Electronically signed by Jemal Byrd 10/04/2019 8:06 AM
[2019-10-04] MEDS ORDERED: AMBIEN PO PRN (09:03)
[2019-10-04] MEDS: LACTULOSE PO SCH ×2 (10:45→22:17)
[2019-10-04] MEDS: MIRALAX PO SCH (10:46)
[2019-10-04] MEDS: HUMALOG (PARKWAY) SUBQ SCH ×3 (10:46→22:25)
[2019-10-04] MEDS: DUONEB (A & A) INH PRN ×2 (11:28→15:03)
--- NOTE | 2019-10-04 15:09 | HISTORY AND PHYSICAL ---
PRIMARY CARE PROVIDER: Dr. Abdulaziz Bran. CHIEF COMPLAINT: Back pain, nausea. HISTORY OF PRESENT ILLNESS: Ms. Gee is a 48-year-old female with a past medical history of morbid obesity, BMI 85.8, diabetes mellitus type 2, chronic anemia, COPD, hypertension, dyslipidemia, congestive heart failure, CVA, depression, who reported to the ED saying that she had been treated for a UTI back on 09/28/2019, and was placed on Bactrim. She reported that she had 2 more days left. However, she had continued abdominal pain that started radiating up into her flank, with some associated nausea and abdominal cramping, as well as some hyperglycemia. She was given a dose of Relistor in the ED that helped with her abdominal cramping, and started on IV antibiotics for pyelonephritis, which we will continue. Her workup in the ED revealed a white count of 13, a sodium of 133, a blood glucose of 320, a urinalysis with 4+ bacteria, too numerous to count WBCs, large leukocytes, small blood. She was still complaining of some right flank pain. However, her renal CT did show some moderate hepatic steatosis, degenerative arthropathy, with severe central stenosis at L3-4 that appears stable. No renal or urethral stones, or evidence of acute obstructive uropathy or other signs of acute pathology by CT. PAST MEDICAL HISTORY: As per HPI. PAST SURGICAL HISTORY: section. FAMILY HISTORY: Reviewed and noncontributory. SOCIAL HISTORY: She lives with family. No tobacco, alcohol, or illicit drug use. ALLERGIES: Levofloxacin and ceftriaxone. HOME MEDICATIONS: 1. DuoNeb. 2. Vitamin C. 3. Colchicine. 4. Ferrous sulfate. 5. Folic acid. 6. Lasix. 7. [place]. 8. Victoza. 9. Meclizine. 10. Meloxicam. 11. Klor-Con. 12. Bactrim. 13. Aspirin. 14. Glucophage. 15. Prilosec. 16. Ambien. REVIEW OF SYSTEMS: A 12-point review of systems was complete and negative, except for those mentioned in the HPI. PHYSICAL EXAMINATION: VITAL SIGNS: Temperature is 97.6 degrees, heart rate 86, respirations 18, blood pressure 117/74, O2 is 97% on room air. GENERAL: Ms. Gee is a pleasant, 48-year-old, female, who is sitting up in the bed in no acute distress, complaining of right flank pain. HEENT: Atraumatic, normocephalic. PERRL. NECK: Supple. Trachea midline. CARDIOVASCULAR: S1, S2 appreciated. No murmurs, gallops, or rubs noted. RESPIRATORY: Lung sounds are clear bilaterally, decreased in the bases. ABDOMEN: Obese, soft, nontender, nondistended. MUSCULOSKELETAL: Moves all extremities well. NEUROLOGIC: No focal deficits noted. DIAGNOSTIC DATA: Renal CT as per HPI. LABORATORY DATA: White count 13, hemoglobin and hematocrit 11 and 40, platelet count is 372,000. Sodium 133, potassium 4.4, BUN 18, creatinine 0.7, blood glucose is 320. Urinalysis shows 4+ bacteria, too numerous to count WBCs, large leukocytes, nitrate negative, small amount of blood. ASSESSMENT AND PLAN: 1. Probable pyelonephritis. We will continue with intravenous Zosyn. Await her urine culture. The patient had recently been on Bactrim for a urinary tract infection. Now complaining of right flank pain. However, renal CT is not showing any hydronephrosis. 2. Hyperglycemia in the setting of type [address] her on sliding scale with patterned blood sugars, diabetic diet. 3. Nausea. Continue Zofran. 4. Constipation, on chronic opiates. She was given a dose of Relistor in the emergency department. Abdominal cramping has since subsided. We will place her on a bowel regimen, and check a KUB in the morning. 5. Chronic obstructive pulmonary disease, not in exacerbation. Will do as needed DuoNebs. 6. Hypertension. Will continue home regimen. 7. Morbid obesity. The patient will need continued education on diet and exercise. 8. Congestive heart failure without exacerbation. Further recommendation to follow physician evaluation, laboratory data, and diagnostic data. Dictated by CORY Kenyon for Gio Saenz MD cc: MD Abdulaziz Lind MD MTDD
[2019-10-04] MEDS: NS 1,000 ML IV SCH (16:27)
[2019-10-04] MEDS: GLUCOPHAGE PO SCH (16:27)
[2019-10-04] MEDS: NORCO-10 PO PRN ×2 (17:39→23:38)
[2019-10-04] MEDS: ZOFRAN IV PRN (17:39)
--- NOTE | 2019-10-04 22:51 | HISTORY AND PHYSICAL ---
ADDENDUM The patient is a morbidly obese female who presented to the hospital with right flank and back pain as well as abdominal pain. States it has been going on for a week. She has been told in the past that she had a urinary tract infection, was placed on antibiotics. She re-presented tonight noting that symptoms were worse. We are going to admit her to the hospital, place her on IV antibiotics, check a urine culture, blood culture, and will follow. We will treat her pyelonephritis. Please see full note. cc: Gio Saenz MD
[2019-10-05] MEDS: ZOSYN 3.375 GM in NS 50 ML IV SCH ×4 (02:05→20:58)
[2019-10-05 06:04] LABS: HEMATOCRIT 37.2 % (37.0-47.0); HEMOGLOBIN 10.2 g/dL (12.0-16.0); MCH 21.7 PG (27-31); MCHC 27.4 g/dL (33-37); MPV 10.9 FL (7.4-10.4); RBC 4.71 XMIL (4.2-5.4); WBC 12.27 X1000 (4.8-10.8)
[2019-10-05 06:11] LABS: AGAP 12; BUN 15 mg/dL (8-22); CALCIUM 9.3 mg/dL (8.8-10.2); CHLORIDE 101 mmol/L (98-107); COSMO 278; CREATININE 0.6 mg/dL (0.5-0.9); ESTIMATED GFR > 60; GLUCOSE 257 mg/dL (70-104); POTASSIUM 4.5 mmol/L (3.5-5.1); SODIUM 134 mmol/L (136-145); TCO2 21 mmol/L (25-35)
[2019-10-05] MEDS: HUMALOG (PARKWAY) SUBQ SCH ×4 (07:19→21:22)
[2019-10-05] MEDS: PRILOSEC PO SCH (07:20)
[2019-10-05] MEDS: NS 1,000 ML IV SCH ×2 (07:21→12:03)
[2019-10-05] MEDS: NORCO-10 PO PRN ×3 (07:26→20:58)
[2019-10-05] MEDS: ZOFRAN IV PRN (08:51)
[2019-10-05] MEDS: ASPIRIN PO SCH (08:54)
[2019-10-05] MEDS: GLUCOPHAGE PO SCH ×2 (08:54→16:25)
[2019-10-05] MEDS: LACTULOSE PO SCH ×2 (08:55→20:58)
[2019-10-05] MEDS: MIRALAX PO SCH ×2 (08:55→14:17)
--- NOTE | 2019-10-05 09:37 | Diag Imaging Result Doc PS360 ---
EXAM: KUB ABDOMEN - 10/05/2019 HISTORY: constipation TECHNIQUE: AP spine abdomen COMPARISON: None. FINDINGS: There is a moderate amount retained fecal debris in colon. Bowel gas pattern otherwise appears nonspecific and nonobstructive. The liver shadow is somewhat prominent. IMPRESSION: Apparent constipation. Nonspecific bowel gas pattern otherwise. Electronically signed by Frandy Shultz 10/05/2019 9:34 AM
--- NOTE | 2019-10-05 12:20 | PROGRESS NOTE ---
DATE: 10/05/2019 SUBJECTIVE: Patient notes that overall she is feeling a little bit better. Still having back pain, but notes that it is better. Her nausea is improved, but she has still not really been up and ambulating. PHYSICAL EXAMINATION: Vital Signs: Reviewed. General: She is awake, alert, oriented. She is in no current respiratory distress. HEENT: Normocephalic. Neck: Supple. Cardiovascular: Regular rate. Chest: Clear, nonlabored. Abdomen: Soft, obese, diffusely minimally tender in her right flank region. Extremities: Moves all extremities. No edema. Neurologic: No changes. ASSESSMENT: 1. Nausea and vomiting. 2. Abdominal pain. 3. Pyelonephritis. 4. Morbid obesity. 5. Chronic constipation. 6. Chronic obstructive pulmonary disease, stable. 7. Hypertension. PLAN: We are going to continue patient in the hospital today. Continue antibiotics and will follow. Hopefully, she can discharge home tomorrow if improved. cc: Gio Saenz MD
[2019-10-05] MEDS: DUONEB (A & A) INH PRN (15:58)
[2019-10-06] MEDS: ZOSYN 3.375 GM in NS 50 ML IV SCH ×2 (00:48→09:25)
[2019-10-06 05:07] VITALS: BP 132/73
[2019-10-06] MEDS: NORCO-10 PO PRN (06:17)
[2019-10-06] MEDS: PRILOSEC PO SCH (06:18)
[2019-10-06] MEDS: HUMALOG (PARKWAY) SUBQ SCH ×2 (06:18→11:45)
[2019-10-06] MEDS: ZOFRAN IV PRN (06:22)
[2019-10-06] MEDS: DUONEB (A & A) INH PRN ×2 (08:13→11:26)
[2019-10-06] MEDS: GLUCOPHAGE PO SCH (09:24)
[2019-10-06] MEDS: MIRALAX PO SCH (09:25)
[2019-10-06] MEDS: LACTULOSE PO SCH (09:25)
[2019-10-06] MEDS: ASPIRIN PO SCH (09:25)
[2019-10-06] MEDS ORDERED: HUMALOG (PARKWAY) SUBQ ONE (13:02)
--- NOTE | 2019-10-06 16:56 | DISCHARGE SUMMARY ---
ADMISSION DATE: 10/04/2019 DISCHARGE DATE: 10/06/2019 DISCHARGE DIAGNOSES: 1. Diabetes with hyperglycemia. 2. Morbid obesity. 3. Pyelonephritis. 4. Nausea, resolved. 5. Constipation, resolved. 6. Chronic pain. 7. COPD, not an exacerbation, stable. 8. Hypertension. 9. Congestive heart failure, stable, systolic. CONSULTATIONS: None. PROCEDURES: None. BRIEF HOSPITAL COURSE: The patient is a 48-year-old female who presented to the hospital treated in the usual fashion, placed on antibiotics, pattern Accu-Cheks, sliding scale insulin. Thankfully, she continued to improve. On discharge she is awake, alert. She is able to ambulate better. She notes that she has had a bowel movement, overall is feeling better. Denies any fevers or chills. DISPOSITION: Patient will be discharged home on antibiotics for a total of 7 days. I discussed with her the importance of following up with Dr. Bran regarding her diabetes and her blood sugars. Discussed the importance of continued ambulation. No changes made on her chronic medications as noted on her HPI. Greater than 30 minutes was spent in total care. cc: Gio Saenz MD
== END 2019-10-06 13:42 | disposition home or self-care (01) ==
LOC: P.ED 01:46 → SUATTDRO 05:54 → P.MEDSURG 05:54
PROVIDERS: ATTEND Family Medicine